=== PATIENT | female | born 1950 | race African-American/Black ===

== ENCOUNTER 2018-09-08 04:21 | Emergency (ER) | payer SELFPAY ==
[~2018-09-08] VITALS: Ht 175.3 cm; Wt 75.7 kg
[2018-09-08 04:30] VITALS: BP 146/103
--- NOTE | 2018-09-08 04:39 | Emergency Room Report ---
History of Present Illness General Chief Complaint: Generalized Weakness Source: Patient (Crow Carrera M.D.) Present Illness HPI Patient presents with weakness and polyuria polydipsia and being out of her insulin. She is from [place] and left her insulin there. She was supposed to meet up with family but this fell through here in [place]. Paramedics were called and her blood sugar was the 400s in the field. She denies chest pain, shortness of breath, fevers, nausea, vomiting, diarrhea, dysuria, skin rashes. Her vision has changed. She has no where to go. Not suicidal, (Crow Carrera M.D.) Allergies: Coded Allergies: PENICILLINS (Verified Allergy, Mild, Rash, 09/08/18) Patient History Past Medical History: see triage record Social History: Reports: smoking, drug use - see tox Social History Narrative from [place] Last Menstrual Period: tomasz Now: No Reviewed Nursing Documentation: PMH: Agreed; PSxH: Agreed (Crow Carrera M.D.) Nursing Documentation-PMH Hx Cardiac Problems: No Hx Hypertension: No Hx Diabetes: Yes (Crow Carrera M.D.) Review of Systems All Other Systems: negative except mentioned in HPI (Crow Carrera M.D.) Physical Exam Vital Signs Date Time Temp Pulse Resp B/P (MAP) Pulse Ox O2 Delivery O2 Flow Rate FiO2 09/08/18 04:08 97.4 97 16 146/103 99 Room Air 97.3 Sp02 EP Interpretation: reviewed, normal General Appearance: well appearing, no apparent distress, GCS 15 Head: normocephalic Eyes: bilateral eye normal inspection, bilateral eye PERRL ENT: moist mucus membranes Neck: supple Respiratory: lungs clear, normal breath sounds Cardiovascular #1: regular rate, rhythm Cardiovascular #2: 2+ radial (R) Gastrointestinal: normal inspection, normal bowel sounds, non tender, no mass, non-distended Musculoskeletal: back normal, normal range of motion Neurologic: alert, oriented x3, motor strength/tone normal, DTRs symmetric, sensory intact, cerebellar normal, speech normal Psychiatric: depressed affect, anxious Skin: normal inspection, warm/dry (Crow Carrera M.D.) Medical Decision Making Diagnostic Impression: Primary Impression: Hyperglycemia Additional Impression: Substance abuse ER Course Patient presents with noncompliance with her insulin. Differential includes DKA , hyperglycemia, other electrolyte abnormality. She will be evaluated with EKG , chest x-ray and labs. She'll be treated with IV hydration and most likely will need insulin. EKG without injury. Chest x-ray normal. Labs with elevated blood sugar. Patient still had high blood sugar after the initial bolus and insulin 10 units was given IV. The patient is complaining about muscle spasms. Magnesium was given IV and a level was checked. When tox discussed with patient, she stated this was not possible to me. ( cocaine) The patient was unable to be discharged initially because she had nowhere to go been no where to get her medications. business services director consult was ordered. The patient was signed out to Dr. De León. Laboratory Tests Test 09/08/18 04:30 09/08/18 06:00 White Blood Count 7.7 K/UL (4.8-10.8) Red Blood Count 5.62 M/UL (4.20-5.40) H Hemoglobin 14.5 G/DL (12.0-16.0) Hematocrit 45.2 % (37.0-47.0) Mean Corpuscular Volume 81 FL (80-99) Mean Corpuscular Hemoglobin 25.8 PG (27.0-31.0) L Mean Corpuscular Hemoglobin Concent 32.1 G/DL (32.0-36.0) Red Cell Distribution Width 11.8 % (11.6-14.8) Platelet Count 258 K/UL (150-450) Mean Platelet Volume 8.5 FL (6.5-10.1) Neutrophils (%) (Auto) 61.6 % (45.0-75.0) Lymphocytes (%) (Auto) 25.6 % (20.0-45.0) Monocytes (%) (Auto) 8.6 % (1.0-10.0) Eosinophils (%) (Auto) 2.8 % (0.0-3.0) Basophils (%) (Auto) 1.4 % (0.0-2.0) Prothrombin Time 11.0 SEC (9.30-11.50) Prothrombin Time INR 1.0 (0.9-1.1) PTT 29 SEC (23-33) Sodium Level 136 MMOL/L (136-145) Potassium Level 4.3 MMOL/L (3.5-5.1) Chloride Level 101 MMOL/L (98-107) Carbon Dioxide Level 29 MMOL/L (21-32) Anion Gap 7 mmol/L (5-15) Blood Urea Nitrogen 23 mg/dL (7-18) H Creatinine 1.1 MG/DL (0.55-1.30) Estimate Glomerular Filtration Rate 49.3 mL/min (>60) Glucose Level 426 MG/DL (74-106) H Calcium Level 9.5 MG/DL (8.5-10.1) Magnesium Level 1.9 MG/DL (1.8-2.4) Total Bilirubin 0.5 MG/DL (0.2-1.0) Aspartate Amino Transferase (AST) 42 U/L (15-37) H Alanine Aminotransferase (ALT) 55 U/L (12-78) Alkaline Phosphatase 145 U/L (46-116) H Total Creatine Kinase 95 U/L (26-308) Troponin I 0.000 ng/mL (0.000-0.056) Pro-B-Type Natriuretic Peptide 204 pg/mL (0-125) H Total Protein 8.2 G/DL (6.4-8.2) Albumin 3.6 G/DL (3.4-5.0) Globulin 4.6 g/dL Albumin/Globulin Ratio 0.8 (1.0-2.7) L Urine Color Pale yellow Urine Appearance Clear Urine pH 7 (4.5-8.0) Urine Specific [place] 1.010 (1.005-1.035) Urine Protein 3+ (NEGATIVE) H Urine Glucose (UA) 4+ (NEGATIVE) H Urine Ketones Negative (NEGATIVE) Urine Blood 1+ (NEGATIVE) H Urine Nitrite Negative (NEGATIVE) Urine Bilirubin Negative (NEGATIVE) Urine Urobilinogen Normal MG/DL (0.0-1.0) Urine Leukocyte Esterase 1+ (NEGATIVE) H Urine RBC 0-2 /HPF (0 - 2) Urine WBC 2-4 /HPF (0 - 2) Urine Squamous Epithelial Cells Occasional /LPF Urine Bacteria Occasional /HPF (NONE) Urine Opiates Screen Negative (NEGATIVE) Urine Barbiturates Screen Negative (NEGATIVE) Phencyclidine (PCP) Screen Negative (NEGATIVE) Urine Amphetamines Screen Negative (NEGATIVE) Urine Benzodiazepines Screen Negative (NEGATIVE) Urine Cocaine Screen Positive (NEGATIVE) H Urine Marijuana (THC) Screen Negative (NEGATIVE) (Crow Carrera M.D.) ER Course Patient well-appearing, glucose down to below 200, awaiting SW for homelessness. Stable for dc to snf with resource packet. (ALVARO DE LEÓN M.D) EKG Diagnostic Results Rate: normal Rhythm: NSR ST Segments: no acute changes (Crow Carrera M.D.) Rhythm Strip Diag. Results EP Interpretation: yes Rhythm: NSR, no PVC's, no ectopy (Crow Carrera M.D.) Rhythm Strip Time: 07:55 EP Interpretation: yes Rate: 67 Rhythm: NSR, no PVC's, no ectopy (ALVARO DE LEÓN Chest X-Ray Diagnostic Results Chest X-Ray Diagnostic Results : Chest X-Ray Ordered: Yes # of Views/Limited/Complete: 1 View Indication: Other EP Interpretation: Yes Interpretation: no consolidation, no effusion, no pneumothorax, no acute cardiopulmonary disease Impression: No acute disease Electronically Signed by: Alvaro De León MD (ALVARO DE LEÓN M.D) Last Vital Signs Date Time Temp Pulse Resp B/P (MAP) Pulse Ox O2 Delivery O2 Flow Rate FiO2 09/08/18 09:56 98.6 90 22 154/86 99 Room Air 98.2 Status: improved (Crow Carrera M.D.) Disposition: HOME, SELF-CARE Crow Carrera M.D. Sep 08, 2018 04:38 ALVARO DE LEÓN M.D Sep 08, 2018 07:59
[2018-09-08 04:47] LABS: BASOPHILS % (AUTO) 1.4 % (0.0-2.0); EOSINOPHILS % (AUTO) 2.8 % (0.0-3.0); HEMATOCRIT 45.2 % (37.0-47.0); HEMOGLOBIN 14.5 G/DL (12.0-16.0); LYMPHOCYTES % (AUTO) 25.6 % (20.0-45.0); MEAN CORPUSCULAR VOLUME 81 FL (80-99); MONOCYTES % (AUTO) 8.6 % (1.0-10.0); NEUTROPHILS % (AUTO) 61.6 % (45.0-75.0); PLATELET COUNT 258 K/UL (150-450); RED BLOOD COUNT 5.62 M/UL (4.20-5.40); RED CELL DISTRIBUTION WIDTH 11.8 % (11.6-14.8); WHITE BLOOD COUNT 7.7 K/UL (4.8-10.8)
[2018-09-08 04:56] LABS: ANION GAP 7 mmol/L (5-15); BLOOD UREA NITROGEN 23 mg/dL (7-18); CALCIUM 9.5 MG/DL (8.5-10.1); CARBON DIOXIDE 29 MMOL/L (21-32); CHLORIDE 101 MMOL/L (98-107); CREATININE 1.1 MG/DL (0.55-1.30); POTASSIUM 4.3 MMOL/L (3.5-5.1); SODIUM 136 MMOL/L (136-145)
[2018-09-08 05:07] LABS: ALANINE AMINOTRANSFERASE 55 U/L (12-78); ALBUMIN 3.6 G/DL (3.4-5.0); ALBUMIN/GLOBULIN RATIO 0.8 (1.0-2.7); ALKALINE PHOSPHATASE 145 U/L (46-116); ASPARTATE AMINO TRANSFERASE 42 U/L (15-37); BILIRUBIN,TOTAL 0.5 MG/DL (0.2-1.0); CREATINE KINASE 95 U/L (26-308)
[2018-09-08] MEDS ORDERED: Insulin Human Regular 100units/ml 3ml IV ONE (05:15)
[2018-09-08 06:26] LABS: APPEARANCE,URINE CLEAR; BILIRUBIN, URINE NEGATIVE (NEGATIVE); COLOR,URINE PALE YELLOW; GLUCOSE, URINE (UA) 4+ (NEGATIVE); KETONES,URINE NEGATIVE (NEGATIVE); LEUKOCYTE ESTERASE ,URINE 1+ (NEGATIVE); NITRITE,URINE NEGATIVE (NEGATIVE); PH,URINE 7 (4.5-8.0); PROTEIN,URINE 3+ (NEGATIVE); UROBILINOGEN,URINE NORMAL MG/DL (0.0-1.0)
[2018-09-08 07:43] VITALS: BP 177/91
[2018-09-08 09:56] VITALS: BP 154/86
--- NOTE | 2018-09-08 10:11 | Diagnostic Imaging Report ---
Indication: Dyspnea Comparison: None A single view chest radiograph was obtained. Findings: Cardiomediastinal appearance is within normal limits for age. The lungs are clear. Pulmonary vascularity is appropriate. The diaphragmatic contour is smooth and costophrenic angles are sharp. No pleural effusions are identified. The bones are unremarkable. Impression: No acute findings
--- NOTE | 2018-09-10 12:07 | Cardiology Report ---
APPROVED REPORT EKG Measurement Heart [id number] Normal sinus rhythm Normal ECG
== END 2018-09-08 12:58 | disposition home or self-care (01) ==
LOC: EDBD 04:21 → EMR 05:15
DX: E11.65 Type 2 diabetes mellitus with hyperglycemia (principal); F14.10 Cocaine abuse, uncomplicated; Z79.4 Long term (current) use of insulin; Z91.14 Patient's other noncompliance with medication regimen
CPT/HCPCS: 36415; 71045; 80053; 80307; 81003; 82550; 83735; 83880; 84484; 85025; 85610; 85730; 93005; 96361; 96365; 96375; 99284; J1815

== ENCOUNTER 2019-09-22 20:51 | Inpatient (IN) | payer MEDICARE ==
[~2019-09-22] VITALS: Ht 175.3 cm; Wt 66.0 kg
[2019-09-22 20:51] VITALS: BP 188/101
--- NOTE | 2019-09-22 20:51 | NUR ---
ED Nurse Note: Patient brought in by ambulance from [facility] with complaints of generalized weakness. Bood sugar "high" in the field. Unable to obtain glucose stick at this time. Will continue to monitor.
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
[2019-09-22 21:04] LABS: HEMATOCRIT 38.8 % (37.0-47.0); LYMPHOCYTES % (AUTO) 22.1 % (20.0-45.0); MEAN CORPUSCULAR VOLUME 79 FL (80-99); MONOCYTES % (AUTO) 6.9 % (1.0-10.0); PLATELET COUNT 231 K/UL (150-450); RED BLOOD COUNT 4.92 M/UL (4.20-5.40); RED CELL DISTRIBUTION WIDTH 10.3 % (11.6-14.8); WHITE BLOOD COUNT 7.1 K/UL (4.8-10.8)
[2019-09-22 21:34] LABS: ALANINE AMINOTRANSFERASE 79 U/L (12-78); ALBUMIN 3.3 G/DL (3.4-5.0); ALBUMIN/GLOBULIN RATIO 0.8 (1.0-2.7); ALKALINE PHOSPHATASE 157 U/L (46-116); ANION GAP 7 mmol/L (5-15); ASPARTATE AMINO TRANSFERASE 48 U/L (15-37); BILIRUBIN,TOTAL 0.4 MG/DL (0.2-1.0); BLOOD UREA NITROGEN 20 mg/dL (7-18); CALCIUM 8.6 MG/DL (8.5-10.1); CARBON DIOXIDE 24 MMOL/L (21-32); CHLORIDE 97 MMOL/L (98-107); CREATININE 1.7 MG/DL (0.55-1.30); POTASSIUM 4.6 MMOL/L (3.5-5.1); SODIUM 128 MMOL/L (136-145)
[2019-09-22 21:50] LABS: APPEARANCE,URINE CLEAR; BILIRUBIN, URINE NEGATIVE (NEGATIVE); COLOR,URINE PALE YELLOW; GLUCOSE, URINE (UA) 4+ (NEGATIVE); KETONES,URINE NEGATIVE (NEGATIVE); LEUKOCYTE ESTERASE ,URINE NEGATIVE (NEGATIVE); NITRITE,URINE NEGATIVE (NEGATIVE); PH,URINE 7 (4.5-8.0); PROTEIN,URINE 2+ (NEGATIVE); UROBILINOGEN,URINE NORMAL MG/DL (0.0-1.0)
--- NOTE | 2019-09-22 21:52 | NUR ---
ED Nurse Note: Patient unable to ambulate to restroom without voiding. Bedside commode placed for convenience.
[2019-09-22] MEDS ORDERED: Insulin Human Regular 100units/ml 3ml IV ONE (22:00)
--- NOTE | 2019-09-22 22:52 | NUR ---
ED Nurse Note: Patient is tolerating fluids well, will continue to monitor.
[2019-09-22] MEDS ORDERED: Morphine Sulfate 2mg/ml Inj(IV/IM USE ONLY) IVP PRN (23:45)
[2019-09-22] MEDS ORDERED: Ketorolac 30mg Inj IV PRN (23:45)
[2019-09-22] MEDS ORDERED: Albuterol/Ipratropium 3ml neb HHN PRN (23:45)
[2019-09-22] MEDS ORDERED: Nitroglycerin Subl 0.4mg tab SL PRN (23:45)
[2019-09-22] MEDS ORDERED: SEROQUEL200 MG ORAL (23:52)
[2019-09-22] MEDS ORDERED: LANTUS SOL100 UNIT/1 SUBQ (23:52)
[2019-09-22] MEDS ORDERED: NOVOLOG100 UNIT/4 SQ (23:52)
--- NOTE | 2019-09-22 23:56 | NUR ---
ED Nurse Note: Report called in to Michelle WASSERMAN.
[2019-09-23] VITALS (7 sets, daily range): BP systolic 143–171; BP diastolic 89–104
--- NOTE | 2019-09-23 | NUR ---
ED Nurse Note: Rectal and nasal swabs completed.
--- NOTE | 2019-09-23 00:12 | NUR ---
ED Nurse Note: Patient transported to floor without incident.
--- NOTE | 2019-09-23 04:29 | NUR ---
NURSES NOTE: Received patient from ER department at approximately 0030. Patient is A/O x4, communicative and able to let needs be known. VS- 97.6, 85, 18, 156/96, 99%. Last BS recorded from ER is 422 from DKA episode down from 775. Will monitor BS to make sure the trend is coming down. 0630 BS will be taken with sliding scale given according to eMAR. IV site in R hand, 22 gauge is patent. NS hung at 100ml/hr. Skin is clear and intact. Bedside commode given on side of the bed for polyuria. Patients BS and BP will continue to be closely monitored. Pt oriented to room, call light within reach, bed at lowest level.
--- NOTE | 2019-09-23 07:15 | Consultation ---
History of Present Illness General Date patient seen: Sep 23, 2019 Time patient seen: 06:00 Chief Complaint: Generalized Weakness Referring physician: dr Baer Reason for Consultation: in hospital management Present Illness HPI 69-year old female PMH of DM, insulin dependent, hypertension ( not on any anti HTN at home), bipolar disorder, substance abuse, presented for evaluation due to generalized weakness. Patient reported depressive episode 2 to 3 days ago and stopped taking her insulin. She felt subsequently weak, short of breath, with palpitations. Patient had episode of urinary incontinence. Patient reported polyuria for the last few days. She denied chest pain. No cough. She denied vomiting , but reported nausea. No fever or chills. No abdominal pain, no diarrhea. Upon evaluation blood pressure was significantly elevated 188/101. Laboratory work-up revealed no leukocytosis , stable hemoglobin and hematocrit. Sodium 128, anion gap 7. BUN 20, creatinine 1.7. Glucose 775. AST 48 ALT 79. Troponin - 0.002. Albumin 3.3. Salicylate , Tylenol and alcohol levels were all negative. Urine toxicology screen was positive for cocaine. Patient admitted to use cocaine recently. Urinalysis revealed no evidence of urinary tract infection. EKG revealed sinus rhythm , no acute ischemic changes. Patient subsequently admitted for further management Allergies: Coded Allergies: PENICILLINS (Verified Allergy, Mild, Rash, 09/08/18) Uncoded Allergies: PENICILLIN (Allergy, Unknown, 09/22/19) Medication History Scheduled Insulin Glargine (Lantus), 0 SUBQ BEDTIME, (Reported) Quetiapine Fumarate* (Seroquel*), 200 MG ORAL DAILY, (Reported) Miscellaneous Medications Insulin Aspart (Novolog), 100 UNIT SQ, (Reported) Patient History History Provided By: Patient Healthcare decision maker self Resuscitation status Full Code Advanced Directive on File Past Medical/Surgical History Past Medical/Surgical History: (1) Bipolar disorder (2) Diabetes (3) HTN (hypertension) Social History Social History: (1) Cocaine use Review of Systems Constitutional: Reports: weakness Eye: Reports: no symptoms ENT: Reports: no symptoms Cardiovascular: Reports: no symptoms Gastrointestinal: Reports: nausea Genitourinary: Reports: incontinence - x1 Musculoskeletal: Reports: no symptoms Skin: Reports: no symptoms Psychiatric: Reports: other - hx bipolar, depression Endocrine: Reports: increased urine, other - DM, requiring insulin Hematologic/Lymphatic: Reports: no symptoms Physical Exam General Appearance: no apparent distress, alert oriented x3 - AA female in NAD Lines, tubes and drains: peripheral HEENT: normocephalic, atraumatic, anicteric, mucous membranes moist, PERRL Neck: non-tender, normal alignment, supple Respiratory/Chest: lungs clear, no respiratory distress, no accessory muscle use Cardiovascular/Chest: normal peripheral pulses, normal rate Abdomen: normal bowel sounds, non tender, soft Extremities: normal range of motion, no calf tenderness, no edema Skin Exam: warm/dry, no diaphoresis Neurologic: no motor/sensory deficits, alert, oriented x 3, responsive Musculoskeletal: normal muscle bulk Last 24 Hour Vital Signs Date Time Temp Pulse Resp B/P (MAP) Pulse Ox O2 Delivery O2 Flow Rate FiO2 09/23/19 02:38 Room Air 09/23/19 00:19 98.6 85 20 158/90 98 Room Air 09/23/19 00:10 98.6 85 20 158/90 98 Room Air 09/22/19 20:51 98.6 91 20 188/101 98 Room Air 09/22/19 20:51 91 20 Room Air 09/22/19 20:34 98.6 91 20 188/101 (130) 98 Room Air Intake and Output 09/22/19 09/23/19 19:00 07:00 Intake Total 0 ml Balance 0 ml Intake Oral 0 ml Laboratory Tests Test 09/22/19 20:48 09/22/19 21:30 White Blood Count 7.1 K/UL (4.8-10.8) Red Blood Count 4.92 M/UL (4.20-5.40) Hemoglobin 13.0 G/DL (12.0-16.0) Hematocrit 38.8 % (37.0-47.0) Mean Corpuscular Volume 79 FL (80-99) L Mean Corpuscular Hemoglobin 26.4 PG (27.0-31.0) L Mean Corpuscular Hemoglobin Concent 33.5 G/DL (32.0-36.0) Red Cell Distribution Width 10.3 % (11.6-14.8) L Platelet Count 231 K/UL (150-450) Mean Platelet Volume 7.5 FL (6.5-10.1) Neutrophils (%) (Auto) 67.0 % (45.0-75.0) Lymphocytes (%) (Auto) 22.1 % (20.0-45.0) Monocytes (%) (Auto) 6.9 % (1.0-10.0) Eosinophils (%) (Auto) 2.0 % (0.0-3.0) Basophils (%) (Auto) 2.0 % (0.0-2.0) Sodium Level 128 MMOL/L (136-145) L Potassium Level 4.6 MMOL/L (3.5-5.1) Chloride Level 97 MMOL/L (98-107) L Carbon Dioxide Level 24 MMOL/L (21-32) Anion Gap 7 mmol/L (5-15) Blood Urea Nitrogen 20 mg/dL (7-18) H Creatinine 1.7 MG/DL (0.55-1.30) H Estimat Glomerular Filtration Rate 36.0 mL/min (>60) Glucose Level 775 MG/DL (74-106) *H Calcium Level 8.6 MG/DL (8.5-10.1) Magnesium Level 2.0 MG/DL (1.8-2.4) Total Bilirubin 0.4 MG/DL (0.2-1.0) Aspartate Amino Transf (AST/SGOT) 48 U/L (15-37) H Alanine Aminotransferase (ALT/SGPT) 79 U/L (12-78) H Alkaline Phosphatase 157 U/L (46-116) H Troponin I 0.002 ng/mL (0.000-0.056) Total Protein 7.6 G/DL (6.4-8.2) Albumin 3.3 G/DL (3.4-5.0) L Globulin 4.3 g/dL Albumin/Globulin Ratio 0.8 (1.0-2.7) L Salicylates Level 1.7 ug/mL (2.8-20) L Acetaminophen Level < 2 MCG/ML (10-30) L Serum Alcohol < 3 mg/dL Acetone Level Negative (NEGATIVE) Urine Color Pale yellow Urine Appearance Clear Urine pH 7 (4.5-8.0) Urine Specific [place] 1.005 (1.005-1.035) Urine Protein 2+ (NEGATIVE) H Urine Glucose (UA) 4+ (NEGATIVE) H Urine Ketones Negative (NEGATIVE) Urine Blood Negative (NEGATIVE) Urine Nitrite Negative (NEGATIVE) Urine Bilirubin Negative (NEGATIVE) Urine Urobilinogen Normal MG/DL (0.0-1.0) Urine Leukocyte Esterase Negative (NEGATIVE) Urine RBC 0-2 /HPF (0 - 2) Urine WBC 0-2 /HPF (0 - 2) Urine Squamous Epithelial Cells Few /LPF (NONE/OCC) Urine Bacteria Few /HPF (NONE) Urine Opiates Screen Negative (NEGATIVE) Urine Barbiturates Screen Negative (NEGATIVE) Phencyclidine (PCP) Screen Negative (NEGATIVE) Urine Amphetamines Screen Negative (NEGATIVE) Urine Benzodiazepines Screen Negative (NEGATIVE) Urine Cocaine Screen Positive (NEGATIVE) H Urine Marijuana (THC) Screen Negative (NEGATIVE) Microbiology Date/Time Source Procedure Growth Status 09/23/19 00:00 Rectum Received Height (Feet): 5 Height (Inches): 9.00 Weight (Pounds): 170 Medications Current Medications Medications (Trade) Dose Ordered Sig/Manny Route PRN Reason Start Time Stop Time Status Last Admin Dose Admin Acetaminophen (Tylenol) 650 mg Q4H PRN ORAL fever 09/22/19 23:45 10/22/19 23:44 Albuterol/ Ipratropium (Albuterol/ Ipratropium) 3 ml Q4H PRN HHN Shortness of Breath 09/22/19 23:45 09/27/19 23:44 Clonidine HCl (Catapres Tab) 0.1 mg Q4H PRN ORAL sbp more than 160 09/22/19 23:45 10/22/19 23:44 Dextrose (Dextrose 50%) 25 ml Q30M PRN IV Hypoglycemia 09/22/19 23:45 10/22/19 23:44 Dextrose (Dextrose 50%) 50 ml Q30M PRN IV Hypoglycemia 09/22/19 23:45 10/22/19 23:44 Heparin Sodium (Porcine) (Heparin 5000 units/ml) 5,000 units EVERY 12 HOURS SUBQ 09/23/19 09:00 10/23/19 08:59 Insulin Aspart (NovoLOG) BEFORE MEALS AND HS SUBQ 09/23/19 06:30 10/23/19 06:29 Ketorolac Tromethamine (Toradol 30mg) 30 mg Q6H PRN IV moderate pain 4-6 09/22/19 23:45 09/27/19 23:44 Morphine Sulfate (Morphine Sulfate) 2 mg Q4H PRN IVP severe pain 7-10 09/22/19 23:45 09/29/19 23:44 Nitroglycerin (Ntg) 0.4 mg Q5M X 3 DOSES PRN SL Prn Chest Pain 09/22/19 23:45 10/22/19 23:44 Ondansetron HCl (Zofran) 4 mg Q6H PRN IVP Nausea & Vomiting 09/22/19 23:45 10/22/19 23:44 Polyethylene Glycol (Miralax) 17 gm HSPRN PRN ORAL Constipation 09/22/19 23:45 10/22/19 23:44 Sodium Chloride 1,000 ml @ 100 mls/hr Q10H IVLG 09/22/19 23:31 10/22/19 23:30 09/22/19 01:00 Temazepam (Restoril) 15 mg HSPRN PRN ORAL Insomnia 09/22/19 23:45 09/29/19 23:44 Assessment/Plan Assessment/Plan: ASSESSMENT HTN urgency Hyperglycemia IDDM Hyponatremia -resolved JOLENE-resolved Cocaine use Mild transaminitis Noncompliance PLAN OF CARE MS floor hydration with NS monitor Na, hypo Na likely due to hyperglycemia-resolved monitor renal parameters, lytes, avoid nephrotoxics JOLENE -resolved BP management , will add Norvasc as a routine management with holding parameters , keep Clonidine on board prn BS management , check [id number], BS down to 400, add Levemir , contineu with SSI TSH WNL encourage compliance with insulin regimen at home trend LFT recreation counselor on abstinence from illicit street drugs DVT prophylaxis supportive care case discussed and evaluated by supervising physician Macarena Riddle NP Sep 23, 2019 07:15
[2019-09-23] MEDS: NovoLOG Insulin Flexpen SUBQ SCH ×5 (07:32→21:26)
[2019-09-23 07:54] LABS: EOSINOPHILS % (AUTO) 2.5 % (0.0-3.0); HEMATOCRIT 34.9 % (37.0-47.0); HEMOGLOBIN 11.8 G/DL (12.0-16.0); LYMPHOCYTES % (AUTO) 35.3 % (20.0-45.0); MEAN CORPUSCULAR VOLUME 78 FL (80-99); MONOCYTES % (AUTO) 6.9 % (1.0-10.0); NEUTROPHILS % (AUTO) 54.3 % (45.0-75.0); PLATELET COUNT 233 K/UL (150-450); RED BLOOD COUNT 4.46 M/UL (4.20-5.40); RED CELL DISTRIBUTION WIDTH 11.5 % (11.6-14.8)
--- NOTE | 2019-09-23 08:00 | NUR ---
NURSE NOTES: received report from Екатерина WASSERMAN, pt a/a/o x4 laying in bed with no signs of distress or other issues at this time. IV on the right hand gauge#22 NS @100ml/hr. call light within reach, bed in lowest position. side rales up x 2. I will f/u as needed.
--- NOTE | 2019-09-23 08:30 | NUR ---
HAND OFF: Report given to LISY Fagan. Pt in stable condition.
[2019-09-23 09:03] LABS: ALANINE AMINOTRANSFERASE 86 U/L (12-78); ALBUMIN 2.9 G/DL (3.4-5.0); ALBUMIN/GLOBULIN RATIO 0.7 (1.0-2.7); ALKALINE PHOSPHATASE 141 U/L (46-116); ANION GAP 11 mmol/L (5-15); ASPARTATE AMINO TRANSFERASE 81 U/L (15-37); BILIRUBIN,TOTAL 0.4 MG/DL (0.2-1.0); BLOOD UREA NITROGEN 17 mg/dL (7-18); CALCIUM 8.3 MG/DL (8.5-10.1); CARBON DIOXIDE 21 MMOL/L (21-32); CHLORIDE 105 MMOL/L (98-107); CHOLESTEROL 104 MG/DL (< 200); CREATININE 1.1 MG/DL (0.55-1.30); HDL CHOLESTEROL 48 MG/DL (40-60); POTASSIUM 4.1 MMOL/L (3.5-5.1); SODIUM 137 MMOL/L (136-145); TRIGLYCERIDES 107 MG/DL (30-150)
[2019-09-23] MEDS: Heparin 5000 units/ml inj SUBQ SCH ×2 (09:26→21:25)
[2019-09-23] MEDS ORDERED: Levemir Flexpen SUBQ SCH (11:30)
--- NOTE | 2019-09-23 11:35 | NUR ---
HAND-OFF: Report given to Jersey WASSERMAN, pt in stable condition.
--- NOTE | 2019-09-23 11:36 | NUR ---
NURSE NOTES: Received pt in bed, AAO x 4. Room air. No c/o of pain/distress. IV on R hand 22g intact and patent, running NS @ 100 ml/hr. Bedside commode at the bedside. Side rails x 2. Bed in the lowest and locked. Call light within reach. Will continue to monitor
--- NOTE | 2019-09-23 11:40 | NUR ---
NURSE NOTES: Blood sugar @1130 was 407. 14 units of novolog and 15 units of levemir given. MAR Riddle made aware
--- NOTE | 2019-09-23 17:13 | History & Physical ---
History and Physical History & Physicial Dictated for Int Med-Dr Baer no. [id number] Jose Hernandez MD Sep 23, 2019 17:13
--- NOTE | 2019-09-23 18:00 | History and Physical Report ---
DATE OF ADMISSION: 09/22/2019 CHIEF COMPLAINT: The patient is a 69-year-old female, who presents with chief complaint of generalized weakness, shortness of breath, and urine incontinence. HISTORY OF PRESENT ILLNESS: The patient states she became extremely depressed about three days prior to admission. The patient is not taking her insulin. The patient then began to experience generalized weakness. The patient also had shortness of breath. The patient developed urinary incontinence. The patient presented to [facility]. The patient was found to have a venous glucose value of 775. The patient was admitted with hyperglycemia and uncontrolled diabetes. REVIEW OF SYSTEMS: CONSTITUTIONAL: The patient denies weight loss or weight gain. The patient complains of generalized weakness as above. HEENT: The patient denies ear or throat pain. The patient denies headache. CARDIOVASCULAR: The patient complains of palpitations. The patient denies chest pain. ABDOMEN: The patient denies nausea, vomiting, diarrhea, or constipation. GENITOURINARY: The patient complains of urinary incontinence. The patient denies dysuria. NEUROMUSCULAR: The patient complains of generalized weakness. The patient denies seizures. PAST MEDICAL HISTORY: Significant for: 1. Type 2 diabetes. 2. Hypertension. 3. Depression. PAST SURGICAL HISTORY: The patient denies. CURRENT MEDICATIONS: 1. NovoLog sliding scale. 2. Lantus insulin of an unknown dose nightly. 3. Seroquel 200 mg p.o. daily. ALLERGIES: Penicillin. SOCIAL HISTORY: The patient is a . The patient lives alone. The patient denies tobacco use. The patient does smoke marijuana and cocaine occasionally. The patient admits to occasional alcohol use. PHYSICAL EXAMINATION: VITAL SIGNS: Temperature 98.1 degrees, respirations 18, pulse 90, and blood pressure 156/89. GENERAL: The patient is a well-developed and well-nourished female, no apparent distress. HEENT: Eyes, pupils equal and responsive to light and accommodation. Extraocular movements are intact. NECK: Supple without lymphadenopathy. CHEST: Lungs are clear to auscultation bilaterally without wheezes or rales. CARDIOVASCULAR: Regular rate. S1 and S2 are normal without murmurs, rubs, or gallops. ABDOMEN: Soft, nontender, and nondistended. Positive bowel sounds. No evidence of hepatosplenomegaly. Currently, no rebound or guarding noted. EXTREMITIES: Negative for clubbing, cyanosis, or edema. RECTAL: Not performed. GENITALIA: Not performed. NEUROLOGIC: Cranial nerves II through XII are grossly intact without focal deficits. Motor strength is 5/5 bilaterally intact. Deep tendon reflexes are 2+ plantar. LABORATORY STUDIES: WBC 7.1, hemoglobin 13.0, hematocrit 38.8, and platelets 231,000. Sodium 128, potassium 4.6, chloride 97, CO2 24, BUN 20, creatinine 1.7, and glucose 775. AST elevated at 48, ALT elevated at 79, and alkaline phosphatase elevated at 157. Troponin 0.002. Urinalysis showed 2+ protein and 4+ glucose. Urine toxicology was positive for cocaine. ASSESSMENT: This is a 69-year-old female: 1. Generalized weakness. 2. Shortness of breath. 3. Hyperglycemia. 4. Uncontrolled diabetes type 2. 5. Hypertensive emergency. 6. Hyponatremia. TREATMENT: 1. Generalized weakness/shortness of breath/hyperglycemia/uncontrolled diabetes type 2. The patient has been placed on Levemir 15 units subcutaneously twice daily. A NovoLog sliding scale has been instituted. Accu-Cheks will be performed before meals and nightly. 2. Hypertensive emergency. The patient is currently receiving clonidine 0.1 mg q.4 h. p.r.n. 3. Hyponatremia. The patient is currently receiving intravenous fluids with sodium chloride. Jose Hernandez M.D. DR: Toney JOB#: [id number] CC:
--- NOTE | 2019-09-23 19:00 | Consultation ---
DATE OF CONSULTATION: 09/23/2019 ENDOCRINOLOGY CONSULTATION CONSULTING PHYSICIAN: Haresh Matos M.D. REFERRING PHYSICIAN: Antolin Baer M.D. REASON FOR CONSULTATION: Hyperglycemia, diabetes out of control. HISTORY OF PRESENT ILLNESS: The patient is a 69-year-old female with history of insulin-dependent diabetes who has not been taking any diabetic medication and insulin due to depression and being out of testing meter. The patient presented to the hospital with glucose of 700. She was not in diabetic ketoacidosis. Creatinine was elevated. The patient was given a fluid and insulin and admitted to the floor for observation and treatment. I was called to manage diabetes. PAST MEDICAL HISTORY: 1. Bipolar disorder. 2. Diabetes. 3. Hypertension. SOCIAL HISTORY: The patient has history of cocaine use. REVIEW OF SYSTEMS: A 12-point review of systems performed. The pertinent positive and negative in the history of present illness. MEDICATIONS: Reviewed and reconciled. ALLERGIES TO MEDICATION: Penicillin. LABORATORY VALUES: WBC 7, hemoglobin 11, hematocrit 34.9, platelets of 233. Sodium 137, potassium 4.1, chloride 105, bicarb 21, BUN 23, creatinine 1.1, glucose of 406. On presentation, glucose was 775. TSH is 2.5. Tox screen is positive for cocaine. PHYSICAL EXAMINATION: GENERAL: The patient is awake and alert. VITAL SIGNS: Blood pressure is 161/98, pulse 88, respiratory rate of 20, temperature of 97.9. HEENT: Pupils are reactive to light. Sclerae anicteric. NECK: No JVD. No thyromegaly. No bruit. LUNGS: Clear. HEART: Regular rate and rhythm. ABDOMEN: Positive bowel sounds. EXTREMITIES: No clubbing, cyanosis, edema. DIAGNOSES: 1. Diabetes, out of control with severe hyperglycemia without diabetic ketoacidosis. 2. Noncompliance with insulin. 3. Hypertension 4. Cocaine abuse. PLAN: 1. Start the patient on Levemir 15 units b.i.d. 2. Start NovoLog 8 units before each meal. 3. NovoLog sliding scale before meals and at bedtime. 4. Hypoglycemia protocol 5. Further adjustment according to blood glucose values. Thank you Dr. Baer, for the courtesy of this consultation. Haresh Matos M.D. DR: Sumi JOB#: [id number] CC:
--- NOTE | 2019-09-23 19:24 | NUR ---
NURSE NOTES: Received report from LISY Putnam. Rounds done. No distress noted, sitting up in bed. Bed in low position, side rails up x2, call light within reach. Patient is hoping to leave tomorrow. Will continue to monitor.
--- NOTE | 2019-09-23 19:25 | NUR ---
HAND-OFF: Report given to LISY Munguia.
[2019-09-23] MEDS: Levemir Flexpen SUBQ SCH (21:28)
[2019-09-24] VITALS (7 sets, daily range): BP systolic 126–175; BP diastolic 79–101
--- NOTE | 2019-09-24 06:15 | General Progress Note ---
Assessment/Plan Problem List: (1) JOLENE (acute kidney injury) ICD Codes: N17.9 - Acute kidney failure, unspecified SNOMED: 86380539, 4970469 (2) Diabetes ICD Codes: E11.9 - Type 2 diabetes mellitus without complications SNOMED: 17412960 (3) HTN (hypertension) ICD Codes: I10 - Essential (primary) hypertension SNOMED: 28268081 (4) Cocaine use ICD Codes: F14.90 - Cocaine use, unspecified, uncomplicated SNOMED: 596923275 (5) Hyperglycemia ICD Codes: R73.9 - Hyperglycemia, unspecified SNOMED: 95148976 Assessment/Plan: continue Levemir 15 units bid continue Novolog 8 units ac tid continue NISS ac / hs Subjective Allergies: Coded Allergies: PENICILLINS (Verified Allergy, Mild, Rash, 09/08/18) Uncoded Allergies: PENICILLIN (Allergy, Unknown, 09/22/19) All Systems: reviewed and negative except above Subjective events noted Item Value Date Time Bedside Blood Glucose 116 mg/dl 09/23/19 2128 Bedside Blood Glucose 221 mg/dl H 09/23/19 1703 Bedside Blood Glucose 407 mg/dl H 09/23/19 1137 Bedside Blood Glucose 396 mg/dl H 09/23/19 0732 Objective Last 24 Hour Vital Signs Date Time Temp Pulse Resp B/P (MAP) Pulse Ox O2 Delivery O2 Flow Rate FiO2 09/24/19 04:01 97.9 67 16 141/87 (105) 99 09/24/19 00:10 91 151/92 (111) 09/23/19 23:28 171/104 09/23/19 23:25 97.3 92 18 171/104 (126) 98 09/23/19 21:00 Room Air 09/23/19 20:38 83 18 97 Room Air 21 09/23/19 20:00 98.1 93 18 145/90 (108) 99 09/23/19 16:00 98.5 82 20 159/101 (120) 98 09/23/19 12:00 97.9 88 20 161/98 (119) 96 09/23/19 11:27 88 143/94 09/23/19 09:00 Room Air 09/23/19 08:00 98.6 88 18 143/94 (110) 95 Intake and Output 09/23/19 09/24/19 18:59 06:59 Intake Total 600 ml Balance 600 ml IV Total 600 ml # Voids 3 Height (Feet): 5 Height (Inches): 9.00 Weight (Pounds): 170 General Appearance: no apparent distress Neck: normal alignment Cardiovascular: normal rate Respiratory/Chest: lungs clear Abdomen: normal bowel sounds Objective Current Medications Medications (Trade) Dose Ordered Sig/Manny Route PRN Reason Start Time Stop Time Status Last Admin Dose Admin Acetaminophen (Tylenol) 650 mg Q4H PRN ORAL fever 09/22/19 23:45 10/22/19 23:44 Albuterol/ Ipratropium (Albuterol/ Ipratropium) 3 ml Q4H PRN HHN Shortness of Breath 09/22/19 23:45 09/27/19 23:44 Amlodipine Besylate (Norvasc) 2.5 mg DAILY ORAL 09/23/19 10:15 10/23/19 10:14 09/23/19 11:27 Clonidine HCl (Catapres Tab) 0.1 mg Q4H PRN ORAL sbp more than 160 09/22/19 23:45 10/22/19 23:44 09/23/19 23:28 Dextrose (Dextrose 50%) 25 ml Q30M PRN IV Hypoglycemia 09/23/19 13:30 10/23/19 13:29 Dextrose (Dextrose 50%) 50 ml Q30M PRN IV Hypoglycemia 09/23/19 13:30 10/23/19 13:29 Heparin Sodium (Porcine) (Heparin 5000 units/ml) 5,000 units EVERY 12 HOURS SUBQ 09/23/19 09:00 10/23/19 08:59 09/23/19 21:25 Insulin Aspart (NovoLOG) BEFORE MEALS AND HS SUBQ 09/23/19 06:30 10/23/19 06:29 09/23/19 21:26 Insulin Aspart (NovoLOG) 8 units NOVOTIAC SUBQ 09/23/19 16:50 10/23/19 16:49 09/23/19 17:02 Insulin Detemir (Levemir) 15 units Q12HR SUBQ 09/23/19 21:00 10/23/19 20:59 09/23/19 21:28 Ketorolac Tromethamine (Toradol 30mg) 30 mg Q6H PRN IV moderate pain 4-6 09/22/19 23:45 09/27/19 23:44 09/23/19 20:41 Morphine Sulfate (Morphine Sulfate) 2 mg Q4H PRN IVP severe pain 7-10 09/22/19 23:45 09/29/19 23:44 Nitroglycerin (Ntg) 0.4 mg Q5M X 3 DOSES PRN SL Prn Chest Pain 09/22/19 23:45 10/22/19 23:44 Ondansetron HCl (Zofran) 4 mg Q6H PRN IVP Nausea & Vomiting 09/22/19 23:45 10/22/19 23:44 Polyethylene Glycol (Miralax) 17 gm HSPRN PRN ORAL Constipation 09/22/19 23:45 10/22/19 23:44 Sodium Chloride 1,000 ml @ 100 mls/hr Q10H IVLG 09/22/19 23:31 10/22/19 23:30 09/24/19 06:10 Temazepam (Restoril) 15 mg HSPRN PRN ORAL Insomnia 09/22/19 23:45 09/29/19 23:44 Haresh Matos MD Sep 24, 2019 06:15
[2019-09-24] MEDS: NovoLOG Insulin Flexpen SUBQ SCH ×9 (06:49→21:40)
--- NOTE | 2019-09-24 07:20 | NUR ---
HAND-OFF: Report given to LISY Fagan.
--- NOTE | 2019-09-24 08:00 | NUR ---
NURSE NOTES: Received report from Nilda WASSERMAN, pt a/a/o x4 laying in bed with no signs of distress or other issues at this time. VS: BP:173/100, HR:73, RN will medicate as indicated. pt stated not feeling any WHITE, blurred vision or tachycardic. RN will f/u. IV on the right hand gauge#22 running NS@100ml/hr. call light within reach. bed in lowest position. side rales up x2. I will f/u as needed.
[2019-09-24] MEDS: Heparin 5000 units/ml inj SUBQ SCH ×2 (08:15→08:22)
[2019-09-24] MEDS: Levemir Flexpen SUBQ SCH ×2 (08:17→21:41)
[2019-09-24 08:25] LABS: BASOPHILS % (AUTO) 0.9 % (0.0-2.0); EOSINOPHILS % (AUTO) 2.9 % (0.0-3.0); HEMATOCRIT 37.9 % (37.0-47.0); HEMOGLOBIN 12.4 G/DL (12.0-16.0); LYMPHOCYTES % (AUTO) 40.5 % (20.0-45.0); MEAN CORPUSCULAR VOLUME 79 FL (80-99); MONOCYTES % (AUTO) 5.4 % (1.0-10.0); NEUTROPHILS % (AUTO) 50.3 % (45.0-75.0); PLATELET COUNT 250 K/UL (150-450); RED CELL DISTRIBUTION WIDTH 11.5 % (11.6-14.8)
--- NOTE | 2019-09-24 08:30 | NUR ---
NURSE NOTES: during medication time, once heparin syringe was prepared, pt REFUSED to take medication, she stated that she doesn't need and that she will walk later today. RN educated pt about risk and benefits of medication. I will f/u as needed.
[2019-09-24 08:37] LABS: ANION GAP 9 mmol/L (5-15); BLOOD UREA NITROGEN 16 mg/dL (7-18); CALCIUM 8.6 MG/DL (8.5-10.1); CARBON DIOXIDE 26 MMOL/L (21-32); CHLORIDE 100 MMOL/L (98-107); CREATININE 1.3 MG/DL (0.55-1.30); SODIUM 135 MMOL/L (136-145)
--- NOTE | 2019-09-24 09:00 | NUR ---
NURSE NOTES: Reassessed BP after given her schedule Norvasc: 164/94. RN wanted to give clonidine Po however pt REFUSED to take medication. she stated that she wants to wait a little bit more. RN explained risk and benefits of the medication. I will f/u as needed.
--- NOTE | 2019-09-24 11:43 | Pulmonology Progress Note ---
Assessment/Plan Problems: (1) HTN (hypertension) (2) JOLENE (acute kidney injury) (3) Diabetes (4) Cocaine use (5) Homelessness Assessment/Plan BP better BS better dc iv fluids renal function better social service for homelessness. Subjective ROS Limited/Unobtainable: No Interval Events: doing better Allergies: Coded Allergies: PENICILLINS (Verified Allergy, Mild, Rash, 09/08/18) Uncoded Allergies: PENICILLIN (Allergy, Unknown, 09/22/19) Objective Last 24 Hour Vital Signs Date Time Temp Pulse Resp B/P (MAP) Pulse Ox O2 Delivery O2 Flow Rate FiO2 09/24/19 09:00 Room Air 09/24/19 09:00 97.3 73 18 164/94 (117) 100 09/24/19 08:14 73 173/100 09/24/19 08:00 97.3 73 18 175/100 (125) 100 09/24/19 07:25 73 18 98 Room Air 21 09/24/19 04:01 97.9 67 16 141/87 (105) 99 09/24/19 00:10 91 151/92 (111) 09/23/19 23:28 171/104 09/23/19 23:25 97.3 92 18 171/104 (126) 98 09/23/19 21:00 Room Air 09/23/19 20:38 83 18 97 Room Air 21 09/23/19 20:00 98.1 93 18 145/90 (108) 99 09/23/19 16:00 98.5 82 20 159/101 (120) 98 09/23/19 12:00 97.9 88 20 161/98 (119) 96 Intake and Output 09/23/19 09/24/19 19:00 07:00 Intake Total 100 ml 1450 ml Balance 100 ml 1450 ml Intake Oral 450 ml IV Total 100 ml 1000 ml # Voids 3 3 General Appearance: WD/WN HEENT: normocephalic, atraumatic Respiratory/Chest: chest wall non-tender, lungs clear Breasts: no masses Cardiovascular: normal rate Abdomen: normal bowel sounds, soft, non tender Extremities: no cyanosis Skin: no rash, no lesions Microbiology Date/Time Source Procedure Growth Status 09/23/19 00:00 Rectum Received Laboratory Tests 09/24/19 08:12: White Blood Count 7.0, Red Blood Count 4.80, Hemoglobin 12.4, Hematocrit 37.9, Mean Corpuscular Volume 79L, Mean Corpuscular Hemoglobin 25.8L, Mean Corpuscular Hemoglobin Concent 32.6, Red Cell Distribution Width 11.5L, Platelet Count 250, Mean Platelet Volume 7.3, Neutrophils (%) (Auto) 50.3, Lymphocytes (%) (Auto) 40.5, Monocytes (%) (Auto) 5.4, Eosinophils (%) (Auto) 2.9, Basophils (%) (Auto) 0.9, Sodium Level 135L, Potassium Level 4.0, Chloride Level 100, Carbon Dioxide Level 26, Anion Gap 9, Blood Urea Nitrogen 16, Creatinine 1.3, Estimat Glomerular Filtration Rate 49.1, Glucose Level 294#H, Calcium Level 8.6 Current Medications Medications (Trade) Dose Ordered Sig/Manny Route PRN Reason Start Time Stop Time Status Last Admin Dose Admin Acetaminophen (Tylenol) 650 mg Q4H PRN ORAL fever 09/22/19 23:45 10/22/19 23:44 Amlodipine Besylate (Norvasc) 5 mg DAILY ORAL 09/25/19 09:00 10/23/19 10:14 UNV Clonidine HCl (Catapres Tab) 0.1 mg Q4H PRN ORAL sbp more than 160 09/22/19 23:45 10/22/19 23:44 09/23/19 23:28 Dextrose (Dextrose 50%) 25 ml Q30M PRN IV Hypoglycemia 09/23/19 13:30 10/23/19 13:29 Dextrose (Dextrose 50%) 50 ml Q30M PRN IV Hypoglycemia 09/23/19 13:30 10/23/19 13:29 Hydralazine HCl (Apresoline) 25 mg Q6HR ORAL 09/24/19 12:00 10/24/19 11:59 UNV Insulin Aspart (NovoLOG) BEFORE MEALS AND HS SUBQ 09/23/19 06:30 10/23/19 06:29 09/24/19 06:50 Insulin Aspart (NovoLOG) 8 units NOVOTIAC SUBQ 09/23/19 16:50 10/23/19 16:49 09/24/19 06:49 Insulin Detemir (Levemir) 15 units Q12HR SUBQ 09/23/19 21:00 10/23/19 20:59 09/24/19 08:17 Ketorolac Tromethamine (Toradol 30mg) 30 mg Q6H PRN IV moderate pain 4-6 09/22/19 23:45 09/27/19 23:44 09/23/19 20:41 Polyethylene Glycol (Miralax) 17 gm HSPRN PRN ORAL Constipation 09/22/19 23:45 10/22/19 23:44 Temazepam (Restoril) 15 mg HSPRN PRN ORAL Insomnia 09/22/19 23:45 09/29/19 23:44 Katya Cheng MD Sep 24, 2019 11:43
--- NOTE | 2019-09-24 13:00 | NUR ---
NURSE NOTES: pt REFUSED insulin coverage, pt stated that is "To much insulin" and that i already gave her in the morning. RN explained risk and benefits and as well as the differenced between NovoLog and Levemir insulin. Dr. Cheng is aware as well.
[2019-09-24] MEDS: HydrALAZINE 25mg tab ORAL SCH ×2 (13:03→17:15)
--- NOTE | 2019-09-24 13:54 | Internal Med Progress Note ---
Subjective Date of Service: Sep 24, 2019 Physician Name Jose Hernandez Attending Physician Antolin Baer MD Current Medications Medications (Trade) Dose Ordered Sig/Manny Route PRN Reason Start Time Stop Time Status Last Admin Dose Admin Acetaminophen (Tylenol) 650 mg Q4H PRN ORAL fever 09/22/19 23:45 10/22/19 23:44 Amlodipine Besylate (Norvasc) 5 mg DAILY ORAL 09/25/19 09:00 10/25/19 08:59 Clonidine HCl (Catapres Tab) 0.1 mg Q4H PRN ORAL sbp more than 160 09/22/19 23:45 10/22/19 23:44 09/23/19 23:28 Dextrose (Dextrose 50%) 25 ml Q30M PRN IV Hypoglycemia 09/23/19 13:30 10/23/19 13:29 Dextrose (Dextrose 50%) 50 ml Q30M PRN IV Hypoglycemia 09/23/19 13:30 10/23/19 13:29 Hydralazine HCl (Apresoline) 25 mg Q6HR ORAL 09/24/19 12:00 10/24/19 11:59 09/24/19 13:03 Insulin Aspart (NovoLOG) BEFORE MEALS AND HS SUBQ 09/23/19 06:30 10/23/19 06:29 09/24/19 06:50 Insulin Aspart (NovoLOG) 8 units NOVOTIAC SUBQ 09/23/19 16:50 10/23/19 16:49 09/24/19 06:49 Insulin Detemir (Levemir) 15 units Q12HR SUBQ 09/23/19 21:00 10/23/19 20:59 09/24/19 08:17 Ketorolac Tromethamine (Toradol 30mg) 30 mg Q6H PRN IV moderate pain 4-6 09/22/19 23:45 09/27/19 23:44 09/23/19 20:41 Polyethylene Glycol (Miralax) 17 gm HSPRN PRN ORAL Constipation 09/22/19 23:45 10/22/19 23:44 Temazepam (Restoril) 15 mg HSPRN PRN ORAL Insomnia 09/22/19 23:45 09/29/19 23:44 Allergies: Coded Allergies: PENICILLINS (Verified Allergy, Mild, Rash, 09/08/18) Uncoded Allergies: PENICILLIN (Allergy, Unknown, 09/22/19) ROS Limited/Unobtainable: No Constitutional: Reports: weakness HEENT: Reports: no symptoms Cardiovascular: Reports: no symptoms Respiratory: Reports: shortness of breath Gastrointestinal/Abdominal: Reports: no symptoms Genitourinary: Reports: no symptoms Neurologic/Psychiatric: Reports: no symptoms Subjective 69 YO F admitted with gen weakness. Now hyperglycemia and hypertensive emergency. Cover for Int Saul-Dr Baer Objective Last Vital Signs Date Time Temp Pulse Resp B/P (MAP) Pulse Ox O2 Delivery O2 Flow Rate FiO2 09/24/19 13:03 170/101 09/24/19 12:00 97.5 78 18 97 09/24/19 09:00 Room Air 09/24/19 07:25 21 Laboratory Tests Test 09/24/19 08:12 White Blood Count 7.0 K/UL (4.8-10.8) Red Blood Count 4.80 M/UL (4.20-5.40) Hemoglobin 12.4 G/DL (12.0-16.0) Hematocrit 37.9 % (37.0-47.0) Mean Corpuscular Volume 79 FL (80-99) L Mean Corpuscular Hemoglobin 25.8 PG (27.0-31.0) L Mean Corpuscular Hemoglobin Concent 32.6 G/DL (32.0-36.0) Red Cell Distribution Width 11.5 % (11.6-14.8) L Platelet Count 250 K/UL (150-450) Mean Platelet Volume 7.3 FL (6.5-10.1) Neutrophils (%) (Auto) 50.3 % (45.0-75.0) Lymphocytes (%) (Auto) 40.5 % (20.0-45.0) Monocytes (%) (Auto) 5.4 % (1.0-10.0) Eosinophils (%) (Auto) 2.9 % (0.0-3.0) Basophils (%) (Auto) 0.9 % (0.0-2.0) Sodium Level 135 MMOL/L (136-145) L Potassium Level 4.0 MMOL/L (3.5-5.1) Chloride Level 100 MMOL/L (98-107) Carbon Dioxide Level 26 MMOL/L (21-32) Anion Gap 9 mmol/L (5-15) Blood Urea Nitrogen 16 mg/dL (7-18) Creatinine 1.3 MG/DL (0.55-1.30) Estimat Glomerular Filtration Rate 49.1 mL/min (>60) Glucose Level 294 MG/DL (74-106) #H Calcium Level 8.6 MG/DL (8.5-10.1) Microbiology Date/Time Source Procedure Growth Status 09/23/19 00:00 Rectum Received Intake and Output 09/23/19 09/24/19 19:00 07:00 Intake Total 100 ml 1450 ml Balance 100 ml 1450 ml Intake Oral 450 ml IV Total 100 ml 1000 ml # Voids 3 3 Objective PHYSICAL EXAMINATION: GENERAL: The patient is a well-developed and well-nourished female, no apparent distress. HEENT: Eyes, pupils equal and responsive to light and accommodation. Extraocular movements are intact. NECK: Supple without lymphadenopathy. CHEST: Lungs are clear to auscultation bilaterally without wheezes or rales. CARDIOVASCULAR: Regular rate. S1 and S2 are normal without murmurs, rubs, or gallops. ABDOMEN: Soft, nontender, and nondistended. Positive bowel sounds. No evidence of hepatosplenomegaly. Currently, no rebound or guarding noted. EXTREMITIES: Negative for clubbing, cyanosis, or edema. RECTAL: Not performed. GENITALIA: Not performed. NEUROLOGIC: Cranial nerves II through XII are grossly intact without focal deficits. Motor strength is 5/5 bilaterally intact. Deep tendon reflexes are 2+ plantar. Assessment/Plan Assessment/Plan ASSESSMENT: This is a 69-year-old female: 1. Generalized weakness. 2. Shortness of breath. 3. Hyperglycemia. 4. Uncontrolled diabetes type 2. 5. Hypertensive emergency. 6. Hyponatremia. TREATMENT: 1. Generalized weakness/shortness of breath/hyperglycemia/uncontrolled diabetes type 2. The patient has been placed on Levemir 15 units subcutaneously twice daily. A NovoLog sliding scale has been instituted. Accu-Cheks will be performed before meals and nightly. 2. Hypertensive emergency. The patient is currently receiving clonidine 0.1 mg q.4 h. p.r.n. 3. Hyponatremia. The patient is currently receiving intravenous fluids with sodium chloride. Jose Hernandez MD Sep 24, 2019 13:54
--- NOTE | 2019-09-24 16:26 | NUR ---
HOMELESS COORDINATOR spoke with patient and patient is alert and oriented. Patient does have a contact number [phone]. Patient states she is chronically homeless. Patient states she came from [place] to stay with a friend and things didn't work out. Patient states she was staying at [facility] for a few months before she returned to [place]. Patient states once she returned to [place], she wasn't feeling well and came to [place]. Patient states she is receiving around $500 in disability. Patient states she does not suffering from any drug abuse. Patient states she is bipolar and deals with depression. Mental health resources provided. Patient would like to return to recuperative care upon discharge, but didn't know the process. CM doesn't feel the patient requires recup care and resources for half-way were provided to patient. patient does have a account contact associate, daughter Thalia Cole . Patient continues to require medical intervention. Will continue to monitor and assist as needed.
--- NOTE | 2019-09-24 20:06 | NUR ---
HAND-OFF: Report given to Nilda WASSERMAN, pt in stable condition.
--- NOTE | 2019-09-24 20:10 | NUR ---
NURSE NOTES: Received report from LISY Fagan. Rounds done. No distress noted, was ambulating in hallway. Bed in low position, side rails up x2, call light within reach. Will continue to monitor.
[2019-09-25 00:15] VITALS: BP 128/83
[2019-09-25] MEDS: HydrALAZINE 25mg tab ORAL SCH ×4 (00:17→18:00)
--- NOTE | 2019-09-25 06:26 | General Progress Note ---
Assessment/Plan Problem List: (1) JOLENE (acute kidney injury) ICD Codes: N17.9 - Acute kidney failure, unspecified SNOMED: 62715048, 4874968 (2) Diabetes ICD Codes: E11.9 - Type 2 diabetes mellitus without complications SNOMED: 21445975 (3) HTN (hypertension) ICD Codes: I10 - Essential (primary) hypertension SNOMED: 47676395 (4) Cocaine use ICD Codes: F14.90 - Cocaine use, unspecified, uncomplicated SNOMED: 306731188 (5) Hyperglycemia ICD Codes: R73.9 - Hyperglycemia, unspecified SNOMED: 95694203 Assessment/Plan: continue Levemir 15 units bid continue Novolog 8 units ac tid continue NISS ac / hs Subjective Allergies: Coded Allergies: PENICILLINS (Verified Allergy, Mild, Rash, 09/08/18) Uncoded Allergies: PENICILLIN (Allergy, Unknown, 09/22/19) All Systems: reviewed and negative except above Subjective events noted Item Value Date Time Bedside Blood Glucose 191 mg/dl H 09/24/19 2141 Bedside Blood Glucose 316 mg/dl H 09/24/19 1716 Bedside Blood Glucose 266 mg/dl H 09/24/19 1150 Bedside Blood Glucose 217 mg/dl H 09/24/19 0817 Bedside Blood Glucose 217 mg/dl H 09/24/19 0650 Objective Last 24 Hour Vital Signs Date Time Temp Pulse Resp B/P (MAP) Pulse Ox O2 Delivery O2 Flow Rate FiO2 09/25/19 00:17 128/83 09/25/19 00:15 98.3 88 20 128/83 (98) 98 09/24/19 21:00 Room Air 09/24/19 20:00 98.0 90 19 143/91 (108) 97 09/24/19 19:33 76 18 98 Room Air 21 09/24/19 17:15 126/79 09/24/19 16:00 97.6 79 18 126/79 (95) 98 09/24/19 13:03 170/101 09/24/19 12:00 97.5 78 18 170/101 (124) 97 09/24/19 09:00 Room Air 09/24/19 09:00 97.3 73 18 164/94 (117) 100 09/24/19 09:00 Room Air 09/24/19 08:14 73 173/100 09/24/19 08:00 97.3 73 18 175/100 (125) 100 09/24/19 07:25 73 18 98 Room Air 21 Intake and Output 09/24/19 09/25/19 18:59 06:59 Intake Total 1350 ml 1200 ml Balance 1350 ml 1200 ml Intake Oral 1350 ml 1200 ml # Voids 3 Laboratory Tests 09/24/19 08:12: White Blood Count 7.0, Red Blood Count 4.80, Hemoglobin 12.4, Hematocrit 37.9, Mean Corpuscular Volume 79L, Mean Corpuscular Hemoglobin 25.8L, Mean Corpuscular Hemoglobin Concent 32.6, Red Cell Distribution Width 11.5L, Platelet Count 250, Mean Platelet Volume 7.3, Neutrophils (%) (Auto) 50.3, Lymphocytes (%) (Auto) 40.5, Monocytes (%) (Auto) 5.4, Eosinophils (%) (Auto) 2.9, Basophils (%) (Auto) 0.9, Sodium Level 135L, Potassium Level 4.0, Chloride Level 100, Carbon Dioxide Level 26, Anion Gap 9, Blood Urea Nitrogen 16, Creatinine 1.3, Estimat Glomerular Filtration Rate 49.1, Glucose Level 294#H, Calcium Level 8.6 Height (Feet): 5 Height (Inches): 9.00 Weight (Pounds): 170 General Appearance: no apparent distress Neck: normal alignment Cardiovascular: normal rate Respiratory/Chest: lungs clear Abdomen: normal bowel sounds Objective Current Medications Medications (Trade) Dose Ordered Sig/Manny Route PRN Reason Start Time Stop Time Status Last Admin Dose Admin Acetaminophen (Tylenol) 650 mg Q4H PRN ORAL fever 09/22/19 23:45 10/22/19 23:44 Amlodipine Besylate (Norvasc) 5 mg DAILY ORAL 09/25/19 09:00 10/25/19 08:59 Clonidine HCl (Catapres Tab) 0.1 mg Q4H PRN ORAL sbp more than 160 09/22/19 23:45 10/22/19 23:44 09/23/19 23:28 Dextrose (Dextrose 50%) 25 ml Q30M PRN IV Hypoglycemia 09/23/19 13:30 10/23/19 13:29 Dextrose (Dextrose 50%) 50 ml Q30M PRN IV Hypoglycemia 09/23/19 13:30 10/23/19 13:29 Hydralazine HCl (Apresoline) 25 mg Q6HR ORAL 09/24/19 12:00 10/24/19 11:59 09/25/19 00:17 Insulin Aspart (NovoLOG) BEFORE MEALS AND HS SUBQ 09/23/19 06:30 10/23/19 06:29 09/24/19 21:40 Insulin Aspart (NovoLOG) 8 units NOVOTIAC SUBQ 09/23/19 16:50 10/23/19 16:49 09/24/19 17:15 Insulin Detemir (Levemir) 15 units Q12HR SUBQ 09/23/19 21:00 10/23/19 20:59 09/24/19 21:41 Ketorolac Tromethamine (Toradol 30mg) 30 mg Q6H PRN IV moderate pain 4-6 09/22/19 23:45 09/27/19 23:44 09/23/19 20:41 Polyethylene Glycol (Miralax) 17 gm HSPRN PRN ORAL Constipation 09/22/19 23:45 10/22/19 23:44 Temazepam (Restoril) 15 mg HSPRN PRN ORAL Insomnia 09/22/19 23:45 09/29/19 23:44 Haresh Matos MD Sep 25, 2019 06:26
[2019-09-25] MEDS: NovoLOG Insulin Flexpen SUBQ SCH ×7 (07:00→21:49)
--- NOTE | 2019-09-25 07:04 | NUR ---
NURSE NOTES: Bedside glucose 417 mg/dl. Repeated and lab glucose ordered. See eMAR for insulin coverage. Patient alert, oriented, sleepy but easily awakened. No distress noted at this time. Will notify .
--- NOTE | 2019-09-25 07:13 | NUR ---
NURSE NOTES: Dr Matos contacted, left message regarding bedside blood glucose of 417 mg/dl, insulin given and lab random glucose ordered per protocol. Awaiting call back.
--- NOTE | 2019-09-25 07:20 | NUR ---
HAND-OFF: Report given to LISY Mckee. Aware of critical value notification for bedside glucose 417 mg/dl. Awaiting MD call back.
[2019-09-25 07:26] LABS: BASOPHILS % (AUTO) 0.8 % (0.0-2.0); EOSINOPHILS % (AUTO) 3.5 % (0.0-3.0); HEMATOCRIT 36.4 % (37.0-47.0); HEMOGLOBIN 12.3 G/DL (12.0-16.0); LYMPHOCYTES % (AUTO) 39.1 % (20.0-45.0); MEAN CORPUSCULAR VOLUME 79 FL (80-99); MONOCYTES % (AUTO) 5.8 % (1.0-10.0); NEUTROPHILS % (AUTO) 50.9 % (45.0-75.0); PLATELET COUNT 240 K/UL (150-450); RED BLOOD COUNT 4.62 M/UL (4.20-5.40); RED CELL DISTRIBUTION WIDTH 11.6 % (11.6-14.8); WHITE BLOOD COUNT 6.3 K/UL (4.8-10.8)
[2019-09-25 07:59] LABS: ALANINE AMINOTRANSFERASE 86 U/L (12-78); ALBUMIN 2.5 G/DL (3.4-5.0); ALBUMIN/GLOBULIN RATIO 0.7 (1.0-2.7); ALKALINE PHOSPHATASE 134 U/L (46-116); ANION GAP 8 mmol/L (5-15); ASPARTATE AMINO TRANSFERASE 73 U/L (15-37); BILIRUBIN,TOTAL 0.3 MG/DL (0.2-1.0); BLOOD UREA NITROGEN 27 mg/dL (7-18); CALCIUM 8.3 MG/DL (8.5-10.1); CARBON DIOXIDE 24 MMOL/L (21-32); CHLORIDE 102 MMOL/L (98-107); CREATININE 1.4 MG/DL (0.55-1.30); PHOSPHORUS 3.7 MG/DL (2.5-4.9); POTASSIUM 4.3 MMOL/L (3.5-5.1); SODIUM 134 MMOL/L (136-145)
[2019-09-25 08:00] VITALS: BP 131/91
--- NOTE | 2019-09-25 08:11 | NUR ---
NURSE NOTES: Received report from Nilda WASSERMAN. Patient is awake and oriented, no acute distress noted. Reporting no pain at this time. Per report, patient's bedside blood glucose was 417 this morning, blood glucose from peripheral draw was 420, insulin was given per sliding scale and Dr. Matos was called and voicemail left. Have not received callback from Dr. Matos as of this time. Will cancel critical value notification because blood glucose is not critically high. Will follow up with MD and re-check blood glucose as ordered.
[2019-09-25] MEDS: Levemir Flexpen SUBQ SCH ×2 (09:19→21:50)
[2019-09-25] MEDS ORDERED: NOVOLOG100 UNIT/4 SQ (09:23)
[2019-09-25] MEDS ORDERED: LANTUS SOL100 UNIT/1 SUBQ (09:24)
--- NOTE | 2019-09-25 09:43 | NUR ---
HOMELESS COORDINATOR HC followed up with shelters to check bed availability. HC spoke with Yuni at [facility], one bed available but patient must be outside at 7pm. Spoke with Rylee at [facility], no available beds. Spoke with Saran at [facility], unable to provide availability but patient is welcomed to come at 11am and 7pm for intake. These fdc are a first come first serve and does no guarantee placement. Patient is made aware of her options. Resources provided. Patient continues to require medical intervention. Will continue to monitor and assist as needed.
[2019-09-25 12:00] VITALS: BP 132/87
--- NOTE | 2019-09-25 12:11 | Pulmonology Progress Note ---
Assessment/Plan Problems: (1) JOLENE (acute kidney injury) (2) HTN (hypertension) (3) Diabetes (4) Cocaine use (5) Homelessness Assessment/Plan renal function is worse today BP better BS better dc iv fluids renal function better social service for homelessness. dc planning to rehab Subjective ROS Limited/Unobtainable: No Constitutional: Reports: no symptoms HEENT: Repors: no symptoms Respiratory: Reports: no symptoms Allergies: Coded Allergies: PENICILLINS (Verified Allergy, Mild, Rash, 09/08/18) Uncoded Allergies: PENICILLIN (Allergy, Unknown, 09/22/19) Objective Last 24 Hour Vital Signs Date Time Temp Pulse Resp B/P (MAP) Pulse Ox O2 Delivery O2 Flow Rate FiO2 09/25/19 09:18 83 131/91 09/25/19 09:00 Room Air 09/25/19 08:00 98.3 83 17 131/91 (104) 98 09/25/19 06:43 131/87 09/25/19 00:17 128/83 09/25/19 00:15 98.3 88 20 128/83 (98) 98 09/24/19 21:00 Room Air 09/24/19 20:00 98.0 90 19 143/91 (108) 97 09/24/19 19:33 76 18 98 Room Air 21 09/24/19 17:15 126/79 09/24/19 16:00 97.6 79 18 126/79 (95) 98 09/24/19 13:03 170/101 Intake and Output 09/24/19 09/25/19 19:00 07:00 Intake Total 1350 ml 1200 ml Balance 1350 ml 1200 ml Intake Oral 1350 ml 1200 ml # Voids 3 General Appearance: WD/WN HEENT: normocephalic, anicteric Respiratory/Chest: chest wall non-tender, lungs clear, chest wall tender Breasts: no masses Cardiovascular: normal peripheral pulses Abdomen: normal bowel sounds, soft, non tender Genitourinary: normal external genitalia Skin: no rash, no lesions Microbiology Date/Time Source Procedure Growth Status 09/23/19 00:00 Nasal Nares MRSA Culture - Final NO METHICILLIN RESISTANT STAPH AUREUS... Complete 09/23/19 00:00 Rectum - Final NO CARBAPENEM-RESISTANT ENTEROBACTERI... Complete 09/23/19 00:00 Rectum VRE Culture - Final NO VANCOMYCIN RESISTANT ENTEROCOCCUS ... Complete Laboratory Tests 09/25/19 06:40: White Blood Count 6.3, Red Blood Count 4.62, Hemoglobin 12.3, Hematocrit 36.4L, Mean Corpuscular Volume 79L, Mean Corpuscular Hemoglobin 26.6L, Mean Corpuscular Hemoglobin Concent 33.8, Red Cell Distribution Width 11.6, Platelet Count 240, Mean Platelet Volume 7.5, Neutrophils (%) (Auto) 50.9, Lymphocytes (% ) (Auto) 39.1, Monocytes (%) (Auto) 5.8, Eosinophils (%) (Auto) 3.5H, Basophils (%) (Auto) 0.8, Erythrocyte Sedimentation Rate 19, Sodium Level 134L, Potassium Level 4.3, Chloride Level 102, Carbon Dioxide Level 24, Anion Gap 8, Blood Urea Nitrogen 27H, Creatinine 1.4H, Estimat Glomerular Filtration Rate 45.1, Glucose Level 420#H, Calcium Level 8.3L, Phosphorus Level 3.7, Magnesium Level 1.6L, Total Bilirubin 0.3, Aspartate Amino Transf (AST/SGOT) 73H, Alanine Aminotransferase (ALT/SGPT) 86H, Alkaline Phosphatase 134H, C-Reactive Protein, Quantitative < 0.4, Total Protein 6.3L, Albumin 2.5L, Globulin 3.8, Albumin/ Globulin Ratio 0.7L Current Medications Medications (Trade) Dose Ordered Sig/Manny Route PRN Reason Start Time Stop Time Status Last Admin Dose Admin Acetaminophen (Tylenol) 650 mg Q4H PRN ORAL fever 09/22/19 23:45 10/22/19 23:44 Amlodipine Besylate (Norvasc) 5 mg DAILY ORAL 09/25/19 09:00 10/25/19 08:59 09/25/19 09:18 Clonidine HCl (Catapres Tab) 0.1 mg Q4H PRN ORAL sbp more than 160 09/22/19 23:45 10/22/19 23:44 09/23/19 23:28 Dextrose (Dextrose 50%) 25 ml Q30M PRN IV Hypoglycemia 09/23/19 13:30 10/23/19 13:29 Dextrose (Dextrose 50%) 50 ml Q30M PRN IV Hypoglycemia 09/23/19 13:30 10/23/19 13:29 Hydralazine HCl (Apresoline) 25 mg Q6HR ORAL 09/24/19 12:00 10/24/19 11:59 09/25/19 06:43 Insulin Aspart (NovoLOG) BEFORE MEALS AND HS SUBQ 09/23/19 06:30 10/23/19 06:29 09/25/19 11:40 Insulin Aspart (NovoLOG) 8 units NOVOTIAC SUBQ 09/23/19 16:50 10/23/19 16:49 09/25/19 07:00 Insulin Detemir (Levemir) 15 units Q12HR SUBQ 09/23/19 21:00 10/23/19 20:59 09/25/19 09:19 Polyethylene Glycol (Miralax) 17 gm HSPRN PRN ORAL Constipation 09/22/19 23:45 10/22/19 23:44 Temazepam (Restoril) 15 mg HSPRN PRN ORAL Insomnia 09/22/19 23:45 09/29/19 23:44 Katya Cheng MD Sep 25, 2019 12:11
--- NOTE | 2019-09-25 12:12 | NUR ---
NURSE NOTES: Patient seen by Dr. Cheng. Informed MD that patient's blood glucose this morning was 420 via lab draw. MD is aware, patient will not be discharged today, orders entered by MD, will carry out.
[2019-09-25 12:25] LABS: CREATINE KINASE 57 U/L (26-308)
[2019-09-25] MEDS ORDERED: HYDRALAZINE HCL25 M1 ORAL (13:24)
[2019-09-25] MEDS ORDERED: NOVOLOG100 UNITS1 SUBQ (13:24)
[2019-09-25] MEDS ORDERED: LEVEMIR FL100 UNIT/1 SUBQ (13:24)
[2019-09-25] MEDS ORDERED: QUETIAPINE FUM200 MG ORAL (13:24)
[2019-09-25] MEDS ORDERED: NORVASC5 MG ORAL (13:24)
--- NOTE | 2019-09-25 13:27 | NUR ---
NURSE NOTES: Per Dr. Cheng, discharge patient if creatinine is less than 1.4. Will follow up for lab results. Lab at bedside drawing patient.
[2019-09-25 13:57] LABS: ANION GAP 8 mmol/L (5-15); BLOOD UREA NITROGEN 27 mg/dL (7-18); CALCIUM 8.6 MG/DL (8.5-10.1); CARBON DIOXIDE 25 MMOL/L (21-32); CHLORIDE 104 MMOL/L (98-107); CREATININE 1.5 MG/DL (0.55-1.30); POTASSIUM 3.9 MMOL/L (3.5-5.1); SODIUM 137 MMOL/L (136-145)
--- NOTE | 2019-09-25 15:27 | NUR ---
NURSE NOTES: Informed Dr. Cheng that patient's creatinine is 1.5. MD ordered to hold discharge until tomorrow. Discharge order entered.
[2019-09-25 16:00] VITALS: BP 147/94
--- NOTE | 2019-09-25 16:31 | NUR ---
*-* NO INSURANCE INFORMATION IN THE BAR UNABLE TO SEND CLINICALS OR REVIEWS *-*
--- NOTE | 2019-09-25 16:53 | Cardiology Report ---
APPROVED REPORT EKG Measurement Heart [id number] NC 180P79 [id number] Normal sinus rhythm Possible Left atrial enlargement Borderline ECG
--- NOTE | 2019-09-25 17:00 | NUR ---
NURSE NOTES: Patient provided with receptacle to collect urine sample and educated to inform RN when she provides sample, patient verbalized understanding.
--- NOTE | 2019-09-25 17:26 | Internal Med Progress Note ---
Subjective Date of Service: Sep 25, 2019 Physician Name Jose Hernandez Attending Physician Antolin Baer MD Current Medications Medications (Trade) Dose Ordered Sig/Manny Route PRN Reason Start Time Stop Time Status Last Admin Dose Admin Acetaminophen (Tylenol) 650 mg Q4H PRN ORAL fever 09/22/19 23:45 10/22/19 23:44 Amlodipine Besylate (Norvasc) 5 mg DAILY ORAL 09/25/19 09:00 10/25/19 08:59 09/25/19 09:18 Clonidine HCl (Catapres Tab) 0.1 mg Q4H PRN ORAL sbp more than 160 09/22/19 23:45 10/22/19 23:44 09/23/19 23:28 Dextrose (Dextrose 50%) 25 ml Q30M PRN IV Hypoglycemia 09/23/19 13:30 10/23/19 13:29 Dextrose (Dextrose 50%) 50 ml Q30M PRN IV Hypoglycemia 09/23/19 13:30 10/23/19 13:29 Hydralazine HCl (Apresoline) 25 mg Q6HR ORAL 09/24/19 12:00 10/24/19 11:59 09/25/19 06:43 Insulin Aspart (NovoLOG) BEFORE MEALS AND HS SUBQ 09/23/19 06:30 10/23/19 06:29 09/25/19 17:17 Insulin Aspart (NovoLOG) 8 units NOVOTIAC SUBQ 09/23/19 16:50 10/23/19 16:49 09/25/19 17:18 Insulin Detemir (Levemir) 15 units Q12HR SUBQ 09/23/19 21:00 10/23/19 20:59 09/25/19 09:19 Polyethylene Glycol (Miralax) 17 gm HSPRN PRN ORAL Constipation 09/22/19 23:45 10/22/19 23:44 Sodium Chloride 1,000 ml @ 150 mls/hr Q6H40M IV 09/25/19 12:15 10/25/19 12:14 09/25/19 13:30 Temazepam (Restoril) 15 mg HSPRN PRN ORAL Insomnia 09/22/19 23:45 09/29/19 23:44 Allergies: Coded Allergies: PENICILLINS (Verified Allergy, Mild, Rash, 09/08/18) Uncoded Allergies: PENICILLIN (Allergy, Unknown, 09/22/19) ROS Limited/Unobtainable: No Constitutional: Reports: no symptoms HEENT: Reports: no symptoms Cardiovascular: Reports: no symptoms Respiratory: Reports: no symptoms Gastrointestinal/Abdominal: Reports: no symptoms Genitourinary: Reports: no symptoms Neurologic/Psychiatric: Reports: no symptoms Subjective 69 YO F admitted with gen weakness. Now hyperglycemia and hypertensive emergency. Cover for Int Saul-Dr Baer Objective Last Vital Signs Date Time Temp Pulse Resp B/P (MAP) Pulse Ox O2 Delivery O2 Flow Rate FiO2 09/25/19 12:00 98.3 88 17 132/87 (102) 98 09/25/19 09:00 Room Air 09/24/19 19:33 21 Laboratory Tests Test 09/25/19 06:40 09/25/19 13:25 White Blood Count 6.3 K/UL (4.8-10.8) Red Blood Count 4.62 M/UL (4.20-5.40) Hemoglobin 12.3 G/DL (12.0-16.0) Hematocrit 36.4 % (37.0-47.0) L Mean Corpuscular Volume 79 FL (80-99) L Mean Corpuscular Hemoglobin 26.6 PG (27.0-31.0) L Mean Corpuscular Hemoglobin Concent 33.8 G/DL (32.0-36.0) Red Cell Distribution Width 11.6 % (11.6-14.8) Platelet Count 240 K/UL (150-450) Mean Platelet Volume 7.5 FL (6.5-10.1) Neutrophils (%) (Auto) 50.9 % (45.0-75.0) Lymphocytes (%) (Auto) 39.1 % (20.0-45.0) Monocytes (%) (Auto) 5.8 % (1.0-10.0) Eosinophils (%) (Auto) 3.5 % (0.0-3.0) H Basophils (%) (Auto) 0.8 % (0.0-2.0) Erythrocyte Sedimentation Rate 19 MM/HR (0-30) Sodium Level 134 MMOL/L (136-145) L 137 MMOL/L (136-145) Potassium Level 4.3 MMOL/L (3.5-5.1) 3.9 MMOL/L (3.5-5.1) Chloride Level 102 MMOL/L (98-107) 104 MMOL/L (98-107) Carbon Dioxide Level 24 MMOL/L (21-32) 25 MMOL/L (21-32) Anion Gap 8 mmol/L (5-15) 8 mmol/L (5-15) Blood Urea Nitrogen 27 mg/dL (7-18) H 27 mg/dL (7-18) H Creatinine 1.4 MG/DL (0.55-1.30) H 1.5 MG/DL (0.55-1.30) H Estimat Glomerular Filtration Rate 45.1 mL/min (>60) 41.7 mL/min (>60) Glucose Level 420 MG/DL (74-106) #H 170 MG/DL (74-106) #H Uric Acid 4.4 MG/DL (2.6-7.2) Calcium Level 8.3 MG/DL (8.5-10.1) L 8.6 MG/DL (8.5-10.1) Phosphorus Level 3.7 MG/DL (2.5-4.9) Magnesium Level 1.6 MG/DL (1.8-2.4) L Total Bilirubin 0.3 MG/DL (0.2-1.0) Aspartate Amino Transf (AST/SGOT) 73 U/L (15-37) H Alanine Aminotransferase (ALT/SGPT) 86 U/L (12-78) H Alkaline Phosphatase 134 U/L (46-116) H Total Creatine Kinase 57 U/L (26-308) C-Reactive Protein, Quantitative < 0.4 mg/dL (0.00-0.90) Total Protein 6.3 G/DL (6.4-8.2) L Albumin 2.5 G/DL (3.4-5.0) L Globulin 3.8 g/dL Albumin/Globulin Ratio 0.7 (1.0-2.7) L Microbiology Date/Time Source Procedure Growth Status 09/23/19 00:00 Nasal Nares MRSA Culture - Final NO METHICILLIN RESISTANT STAPH AUREUS... Complete 09/23/19 00:00 Rectum - Final NO CARBAPENEM-RESISTANT ENTEROBACTERI... Complete 09/23/19 00:00 Rectum VRE Culture - Final NO VANCOMYCIN RESISTANT ENTEROCOCCUS ... Complete Intake and Output 09/24/19 09/25/19 19:00 07:00 Intake Total 1350 ml 1200 ml Balance 1350 ml 1200 ml Intake Oral 1350 ml 1200 ml # Voids 3 Objective PHYSICAL EXAMINATION: GENERAL: The patient is a well-developed and well-nourished female, no apparent distress. HEENT: Eyes, pupils equal and responsive to light and accommodation. Extraocular movements are intact. NECK: Supple without lymphadenopathy. CHEST: Lungs are clear to auscultation bilaterally without wheezes or rales. CARDIOVASCULAR: Regular rate. S1 and S2 are normal without murmurs, rubs, or gallops. ABDOMEN: Soft, nontender, and nondistended. Positive bowel sounds. No evidence of hepatosplenomegaly. Currently, no rebound or guarding noted. EXTREMITIES: Negative for clubbing, cyanosis, or edema. RECTAL: Not performed. GENITALIA: Not performed. NEUROLOGIC: Cranial nerves II through XII are grossly intact without focal deficits. Motor strength is 5/5 bilaterally intact. Deep tendon reflexes are 2+ plantar. Assessment/Plan Assessment/Plan ASSESSMENT: This is a 69-year-old female: 1. Generalized weakness. 2. Shortness of breath. 3. Hyperglycemia. 4. Uncontrolled diabetes type 2. 5. Hypertensive emergency. 6. Hyponatremia. TREATMENT: 1. Generalized weakness/shortness of breath/hyperglycemia/uncontrolled diabetes type 2. The patient has been placed on Levemir 15 units subcutaneously twice daily. A NovoLog sliding scale has been instituted. Accu-Cheks will be performed before meals and nightly. 2. Hypertensive emergency. The patient is currently receiving clonidine 0.1 mg q.4 h. p.r.n. 3. Hyponatremia. The patient is currently receiving intravenous fluids with sodium chloride. Jose Hernandez MD Sep 25, 2019 17:26
--- NOTE | 2019-09-25 19:41 | NUR ---
HAND-OFF: Report given to Nilda WASSERMAN.
--- NOTE | 2019-09-25 19:45 | NUR ---
NURSE NOTES: Received report from LISY Mckee. Patient alert, oriented. IVF running in RFA. No distress noted. Bed in low position, locked, side rails up x2, call light within reach. Aware of need to collect urine. Will continue to monitor.
[2019-09-25 20:00] VITALS: BP 153/98
[2019-09-25 22:55] LABS: APPEARANCE,URINE CLEAR; BILIRUBIN, URINE NEGATIVE (NEGATIVE); COLOR,URINE PALE YELLOW; GLUCOSE, URINE (UA) 3+ (NEGATIVE); KETONES,URINE NEGATIVE (NEGATIVE); LEUKOCYTE ESTERASE ,URINE NEGATIVE (NEGATIVE); NITRITE,URINE NEGATIVE (NEGATIVE); PH,URINE 6 (4.5-8.0); PROTEIN,URINE 2+ (NEGATIVE); UROBILINOGEN,URINE NORMAL MG/DL (0.0-1.0)
[2019-09-26] VITALS: BP 141/90
[2019-09-26] MEDS ORDERED: QUEtiapine 200mg tab ORAL SCH
[2019-09-26] MEDS ORDERED: Levemir Flexpen SUBQ SCH
[2019-09-26] MEDS ORDERED: NovoLOG Insulin Flexpen SUBQ SCH
[2019-09-26] MEDS ORDERED: HydrALAZINE 25mg tab ORAL SCH
[2019-09-26] MEDS: Miralax 17gm pkt ORAL PRN ×2 (00:36→17:32)
[2019-09-26] MEDS: HydrALAZINE 25mg tab ORAL SCH ×4 (00:37→17:32)
[2019-09-26 06:30] VITALS: BP 147/94
[2019-09-26] MEDS: NovoLOG Insulin Flexpen SUBQ SCH ×7 (06:30→21:17)
--- NOTE | 2019-09-26 06:40 | General Progress Note ---
Assessment/Plan Problem List: (1) JOLENE (acute kidney injury) ICD Codes: N17.9 - Acute kidney failure, unspecified SNOMED: 19524088, 0991986 (2) Diabetes ICD Codes: E11.9 - Type 2 diabetes mellitus without complications SNOMED: 50224337 (3) HTN (hypertension) ICD Codes: I10 - Essential (primary) hypertension SNOMED: 76538704 (4) Cocaine use ICD Codes: F14.90 - Cocaine use, unspecified, uncomplicated SNOMED: 407390808 (5) Hyperglycemia ICD Codes: R73.9 - Hyperglycemia, unspecified SNOMED: 07924267 Assessment/Plan: increase Levemir to 18 units bid continue Novolog 8 units ac tid continue NISS ac / hs Subjective Allergies: Coded Allergies: PENICILLINS (Verified Allergy, Mild, Rash, 09/08/18) Uncoded Allergies: PENICILLIN (Allergy, Unknown, 09/22/19) All Systems: reviewed and negative except above Subjective events noted fasting glucose elevated Item Value Date Time Bedside Blood Glucose 181 mg/dl H 09/25/19 2150 Bedside Blood Glucose 162 mg/dl H 09/25/19 1718 Bedside Blood Glucose 204 mg/dl H 09/25/19 1224 Bedside Blood Glucose 417 mg/dl H 09/25/19 0919 Glucose Level 420 MG/DL H # 09/25/19 0640 Objective Last 24 Hour Vital Signs Date Time Temp Pulse Resp B/P (MAP) Pulse Ox O2 Delivery O2 Flow Rate FiO2 09/26/19 00:37 141/90 09/26/19 00:00 98.0 96 18 141/90 (107) 99 09/25/19 21:00 Room Air 09/25/19 20:00 98.0 86 20 153/98 (116) 98 09/25/19 16:00 98.3 84 16 147/94 (111) 97 09/25/19 12:00 98.3 88 17 132/87 (102) 98 09/25/19 12:00 132/87 09/25/19 09:18 83 131/91 09/25/19 09:00 Room Air 09/25/19 08:00 98.3 83 17 131/91 (104) 98 09/25/19 06:43 131/87 Intake and Output 09/25/19 09/26/19 18:59 06:59 Intake Total 598 ml 1350 ml Balance 598 ml 1350 ml Intake Oral 598 ml IV Total 1350 ml # Voids 2 Laboratory Tests 09/25/19 06:40: White Blood Count 6.3, Red Blood Count 4.62, Hemoglobin 12.3, Hematocrit 36.4L, Mean Corpuscular Volume 79L, Mean Corpuscular Hemoglobin 26.6L, Mean Corpuscular Hemoglobin Concent 33.8, Red Cell Distribution Width 11.6, Platelet Count 240, Mean Platelet Volume 7.5, Neutrophils (%) (Auto) 50.9, Lymphocytes (% ) (Auto) 39.1, Monocytes (%) (Auto) 5.8, Eosinophils (%) (Auto) 3.5H, Basophils (%) (Auto) 0.8, Erythrocyte Sedimentation Rate 19, Sodium Level 134L, Potassium Level 4.3, Chloride Level 102, Carbon Dioxide Level 24, Anion Gap 8, Blood Urea Nitrogen 27H, Creatinine 1.4H, Estimat Glomerular Filtration Rate 45.1, Glucose Level 420#H, Uric Acid 4.4, Calcium Level 8.3L, Phosphorus Level 3.7, Magnesium Level 1.6L, Total Bilirubin 0.3, Aspartate Amino Transf (AST/SGOT) 73H, Alanine Aminotransferase (ALT/SGPT) 86H, Alkaline Phosphatase 134H, Total Creatine Kinase 57, C-Reactive Protein, Quantitative < 0.4, Total Protein 6.3L, Albumin 2.5L, Globulin 3.8, Albumin/Globulin Ratio 0.7L 09/25/19 13:25: Sodium Level 137, Potassium Level 3.9, Chloride Level 104, Carbon Dioxide Level 25, Anion Gap 8, Blood Urea Nitrogen 27H, Creatinine 1.5H, Estimat Glomerular Filtration Rate 41.7, Glucose Level 170#H, Calcium Level 8.6 09/25/19 22:35: Urine Color Pale yellow, Urine Appearance Clear, Urine pH 6, Urine Specific [place] 1.005, Urine Protein 2+H, Urine Glucose (UA) 3+H, Urine Ketones Negative , Urine Blood Negative, Urine Nitrite Negative, Urine Bilirubin Negative, Urine Urobilinogen Normal, Urine Leukocyte Esterase Negative, Urine RBC 0, Urine WBC 0 , Urine Squamous Epithelial Cells None, Urine Bacteria None, Urine Eosinophils None seen, Urine Osmolality 370L, Urine Random Creatinine [Pending], Urine Random Microalbumin [Pending], Urine Random Sodium 106, Urine Microalbumin/ Creatinine Ratio [Pending] 09/26/19 06:31: White Blood Count [Pending], Red Blood Count [Pending], Hemoglobin [Pending], Hematocrit [Pending], Mean Corpuscular Volume [Pending], Mean Corpuscular Hemoglobin [Pending], Mean Corpuscular Hemoglobin Concent [Pending], Red Cell Distribution Width [Pending], Platelet Count [Pending], Mean Platelet Volume [ Pending], Neutrophils (%) (Auto) [Pending], Lymphocytes (%) (Auto) [Pending], Monocytes (%) (Auto) [Pending], Eosinophils (%) (Auto) [Pending], Basophils (%) (Auto) [Pending], Erythrocyte Sedimentation Rate [Pending], Sodium Level [ Pending], Potassium Level [Pending], Chloride Level [Pending], Carbon Dioxide Level [Pending], Blood Urea Nitrogen [Pending], Creatinine [Pending], Estimat Glomerular Filtration Rate [Pending], Glucose Level [Pending], Calcium Level [ Pending], Phosphorus Level [Pending], Magnesium Level [Pending], Total Bilirubin [Pending], Aspartate Amino Transf (AST/SGOT) [Pending], Alanine Aminotransferase (ALT/SGPT) [Pending], Alkaline Phosphatase [Pending], C- Reactive Protein, Quantitative [Pending], Total Protein [Pending], Albumin [ Pending], Globulin [Pending] Height (Feet): 5 Height (Inches): 9.00 Weight (Pounds): 170 General Appearance: no apparent distress Neck: normal alignment Cardiovascular: normal rate Respiratory/Chest: lungs clear Abdomen: normal bowel sounds Pelvis: normal external exam Objective Current Medications Medications (Trade) Dose Ordered Sig/Manny Route PRN Reason Start Time Stop Time Status Last Admin Dose Admin Acetaminophen (Tylenol) 650 mg Q4H PRN ORAL fever 09/22/19 23:45 10/22/19 23:44 Amlodipine Besylate (Norvasc) 5 mg DAILY ORAL 09/25/19 09:00 10/25/19 08:59 09/25/19 09:18 Clonidine HCl (Catapres Tab) 0.1 mg Q4H PRN ORAL sbp more than 160 09/22/19 23:45 10/22/19 23:44 09/23/19 23:28 Dextrose (Dextrose 50%) 25 ml Q30M PRN IV Hypoglycemia 09/23/19 13:30 10/23/19 13:29 Dextrose (Dextrose 50%) 50 ml Q30M PRN IV Hypoglycemia 09/23/19 13:30 10/23/19 13:29 Hydralazine HCl (Apresoline) 25 mg Q6HR ORAL 09/24/19 12:00 10/24/19 11:59 09/26/19 00:37 Insulin Aspart (NovoLOG) BEFORE MEALS AND HS SUBQ 09/23/19 06:30 10/23/19 06:29 09/25/19 21:49 Insulin Aspart (NovoLOG) 8 units NOVOTIAC SUBQ 09/23/19 16:50 10/23/19 16:49 09/25/19 17:18 Insulin Detemir (Levemir) 15 units Q12HR SUBQ 09/23/19 21:00 10/23/19 20:59 09/25/19 21:50 Polyethylene Glycol (Miralax) 17 gm HSPRN PRN ORAL Constipation 09/22/19 23:45 10/22/19 23:44 09/26/19 00:36 Sodium Chloride 1,000 ml @ 150 mls/hr Q6H40M IV 09/25/19 12:15 10/25/19 12:14 09/26/19 03:00 Temazepam (Restoril) 15 mg HSPRN PRN ORAL Insomnia 09/22/19 23:45 09/29/19 23:44 Haresh Matos MD Sep 26, 2019 06:40
[2019-09-26 06:58] LABS: ALANINE AMINOTRANSFERASE 114 U/L (12-78); ALBUMIN 2.8 G/DL (3.4-5.0); ALBUMIN/GLOBULIN RATIO 0.7 (1.0-2.7); ALKALINE PHOSPHATASE 92 U/L (46-116); ANION GAP 5 mmol/L (5-15); ASPARTATE AMINO TRANSFERASE 115 U/L (15-37); BILIRUBIN,TOTAL 0.3 MG/DL (0.2-1.0); CALCIUM 8.5 MG/DL (8.5-10.1); CARBON DIOXIDE 27 MMOL/L (21-32); CHLORIDE 107 MMOL/L (98-107); CREATININE 1.1 MG/DL (0.55-1.30); PHOSPHORUS 3.4 MG/DL (2.5-4.9); POTASSIUM 4.1 MMOL/L (3.5-5.1); SODIUM 139 MMOL/L (136-145)
[2019-09-26 07:18] LABS: BASOPHILS % (AUTO) 0.9 % (0.0-2.0); EOSINOPHILS % (AUTO) 3.1 % (0.0-3.0); HEMATOCRIT 37.6 % (37.0-47.0); HEMOGLOBIN 12.6 G/DL (12.0-16.0); LYMPHOCYTES % (AUTO) 39.3 % (20.0-45.0); MEAN CORPUSCULAR VOLUME 78 FL (80-99); MONOCYTES % (AUTO) 6.2 % (1.0-10.0); NEUTROPHILS % (AUTO) 50.4 % (45.0-75.0); PLATELET COUNT 263 K/UL (150-450); RED BLOOD COUNT 4.82 M/UL (4.20-5.40); RED CELL DISTRIBUTION WIDTH 11.4 % (11.6-14.8); WHITE BLOOD COUNT 6.1 K/UL (4.8-10.8)
[2019-09-26 07:22] LABS: BLOOD UREA NITROGEN 22 mg/dL (7-18)
--- NOTE | 2019-09-26 07:39 | NUR ---
HAND-OFF: Report given to LISY Suggs.
--- NOTE | 2019-09-26 07:40 | NUR ---
NURSE NOTES: Received report from LISY Munguia. Pt. AOx4. In RA. Sleeping comfortably. Denies any pain or discomfort. R FA 22g IV SL. Bed on lowest position, side rails upx2, brakes engaged. Call light within easy reach.
[2019-09-26 08:00] VITALS: BP 131/77
[2019-09-26] MEDS: Levemir Flexpen SUBQ SCH ×2 (09:09→21:16)
--- NOTE | 2019-09-26 09:30 | NUR ---
PT EVALUATION NOTE Patient seen for initial evaluation, see complete evaluation for details. Patient presents with generalized weakness and impaired balance which affects patient's ability to perform mobility tasks safely. Patient requires SBA for transfers and ambulation without assistive device. Patient's gait is unsteady however no loss of balance. Patient will benefit from skilled inpatient PT intervention to address strength, balance and safety for improved level of functional mobility with increased safety awareness and stable gait. Recommend discharge to SNF for further rehab once medically cleared by MD. DME needs to be determined based on patient's progress. Addendum: 09/26/19 at 1308 by VIOLETA BRENNAN PT Amended: Links added.
--- NOTE | 2019-09-26 10:27 | NUR ---
HOMELESS COORDINATOR HC followed up with shelters to check bed availability. Spoke with Madeline at [facility], unable to provide availability for beds but does state cots available. Patient is welcomed to come at 12pm for intake. These custodial are a first come first serve and does no guarantee placement. Patient is made aware of her options. Location provided.
--- NOTE | 2019-09-26 10:30 | NUR ---
NURSE NOTES: Pt aware of DC orders. Informed Need to verify regarding DC medications and prescriptions.
--- NOTE | 2019-09-26 11:01 | Diagnostic Imaging Report ---
Indication:Elevated Bun and Creatinine. Technique: Grayscale and duplex Doppler imaging of the kidneys performed. Comparison: None Findings: Size and contour of the kidneys are normal. The renal cortex appear abnormally echogenic. The right kidney is 10.5 cm in length.. The left kidney measures 10 cm. in length. A few tiny discrete cysts are noted within both kidneys. The IVC is patent. Urinary bladder is unremarkable. IMPRESSION: Suspected medical renal disease
--- NOTE | 2019-09-26 11:30 | NUR ---
NURSE NOTES: Communicated with Dr. Cheng regarding Pt's DC prescriptions and today's lab results.
--- NOTE | 2019-09-26 11:56 | Pulmonology Progress Note ---
Assessment/Plan Problems: (1) JOLENE (acute kidney injury) (2) HTN (hypertension) (3) Diabetes (4) Cocaine use (5) Homelessness Assessment/Plan renal function better tody BP better BS better renal function better social service for homelessness. dc planning to rehab Subjective ROS Limited/Unobtainable: No Constitutional: Reports: no symptoms HEENT: Repors: no symptoms Respiratory: Reports: no symptoms Allergies: Coded Allergies: PENICILLINS (Verified Allergy, Mild, Rash, 09/08/18) Uncoded Allergies: PENICILLIN (Allergy, Unknown, 09/22/19) Objective Last 24 Hour Vital Signs Date Time Temp Pulse Resp B/P (MAP) Pulse Ox O2 Delivery O2 Flow Rate FiO2 09/26/19 09:09 84 131/77 09/26/19 09:00 Room Air 09/26/19 08:00 97.1 84 19 131/77 (95) 99 09/26/19 06:45 147/94 09/26/19 06:30 98.0 77 20 147/94 (111) 98 09/26/19 00:37 141/90 09/26/19 00:00 98.0 96 18 141/90 (107) 99 09/25/19 21:00 Room Air 09/25/19 20:00 98.0 86 20 153/98 (116) 98 09/25/19 16:00 98.3 84 16 147/94 (111) 97 09/25/19 12:00 98.3 88 17 132/87 (102) 98 09/25/19 12:00 132/87 Intake and Output 09/25/19 09/26/19 18:59 06:59 Intake Total 598 ml 1710 ml Balance 598 ml 1710 ml Intake Oral 598 ml 360 ml IV Total 1350 ml # Voids 2 4 General Appearance: WD/WN HEENT: normocephalic, atraumatic Respiratory/Chest: chest wall non-tender, lungs clear, normal breath sounds Breasts: no masses Cardiovascular: normal peripheral pulses Abdomen: normal bowel sounds, soft, non tender Genitourinary: normal external genitalia Extremities: no clubbing Skin: no rash Neurologic/Psychiatric: slagger II-XII grossly normal Laboratory Tests 09/25/19 13:25: Sodium Level 137, Potassium Level 3.9, Chloride Level 104, Carbon Dioxide Level 25, Anion Gap 8, Blood Urea Nitrogen 27H, Creatinine 1.5H, Estimat Glomerular Filtration Rate 41.7, Glucose Level 170#H, Calcium Level 8.6 09/25/19 22:35: Urine Color Pale yellow, Urine Appearance Clear, Urine pH 6, Urine Specific [place] 1.005, Urine Protein 2+H, Urine Glucose (UA) 3+H, Urine Ketones Negative , Urine Blood Negative, Urine Nitrite Negative, Urine Bilirubin Negative, Urine Urobilinogen Normal, Urine Leukocyte Esterase Negative, Urine RBC 0, Urine WBC 0 , Urine Squamous Epithelial Cells None, Urine Bacteria None, Urine Eosinophils None seen, Urine Osmolality 370L, Urine Random Creatinine [Pending], Urine Random Microalbumin [Pending], Urine Random Sodium 106, Urine Microalbumin/ Creatinine Ratio [Pending] 09/26/19 06:31: Sodium Level 139, Potassium Level 4.1, Chloride Level 107, Carbon Dioxide Level 27, Anion Gap 5, Blood Urea Nitrogen 22H, Creatinine 1.1, Estimat Glomerular Filtration Rate 59.5, Glucose Level 123H, Calcium Level 8.5, White Blood Count 6.1, Red Blood Count 4.82, Hemoglobin 12.6, Hematocrit 37.6, Mean Corpuscular Volume 78L, Mean Corpuscular Hemoglobin 26.2L, Mean Corpuscular Hemoglobin Concent 33.5, Red Cell Distribution Width 11.4L, Platelet Count 263, Mean Platelet Volume 7.9, Neutrophils (%) (Auto) 50.4, Lymphocytes (%) (Auto) 39.3, Monocytes (%) (Auto) 6.2, Eosinophils (%) (Auto) 3.1H, Basophils (%) (Auto) 0.9 , Erythrocyte Sedimentation Rate 28, Phosphorus Level 3.4, Magnesium Level 1.4L , Total Bilirubin 0.3, Aspartate Amino Transf (AST/SGOT) 115H, Alanine Aminotransferase (ALT/SGPT) 114H, Alkaline Phosphatase 92, C-Reactive Protein, Quantitative < 0.4, Total Protein 6.9, Albumin 2.8L, Globulin 4.1, Albumin/ Globulin Ratio 0.7L Current Medications Medications (Trade) Dose Ordered Sig/Manny Route PRN Reason Start Time Stop Time Status Last Admin Dose Admin Acetaminophen (Tylenol) 650 mg Q4H PRN ORAL fever 09/22/19 23:45 10/22/19 23:44 Amlodipine Besylate (Norvasc) 5 mg DAILY ORAL 09/25/19 09:00 10/25/19 08:59 09/26/19 09:09 Clonidine HCl (Catapres Tab) 0.1 mg Q4H PRN ORAL sbp more than 160 09/22/19 23:45 10/22/19 23:44 09/23/19 23:28 Dextrose (Dextrose 50%) 25 ml Q30M PRN IV Hypoglycemia 09/23/19 13:30 10/23/19 13:29 Dextrose (Dextrose 50%) 50 ml Q30M PRN IV Hypoglycemia 09/23/19 13:30 10/23/19 13:29 Hydralazine HCl (Apresoline) 25 mg Q6HR ORAL 09/24/19 12:00 10/24/19 11:59 09/26/19 06:45 Insulin Aspart (NovoLOG) BEFORE MEALS AND HS SUBQ 09/23/19 06:30 10/23/19 06:29 09/25/19 21:49 Insulin Aspart (NovoLOG) 8 units NOVOTIAC SUBQ 09/23/19 16:50 10/23/19 16:49 09/26/19 06:48 Insulin Detemir (Levemir) 15 units Q12HR SUBQ 09/23/19 21:00 10/23/19 20:59 09/26/19 09:09 Polyethylene Glycol (Miralax) 17 gm HSPRN PRN ORAL Constipation 09/22/19 23:45 10/22/19 23:44 09/26/19 00:36 Sodium Chloride 1,000 ml @ 150 mls/hr Q6H40M IV 09/25/19 12:15 10/25/19 12:14 09/26/19 10:45 Temazepam (Restoril) 15 mg HSPRN PRN ORAL Insomnia 09/22/19 23:45 09/29/19 23:44 Katya Cheng MD Sep 26, 2019 11:56
[2019-09-26 12:00] VITALS: BP 146/86
--- NOTE | 2019-09-26 12:32 | NUR ---
NURSE NOTES: Informed Dr Cheng for the second time Pt.'s magnesium level. No orders at this time.
--- NOTE | 2019-09-26 13:30 | NUR ---
NURSE NOTES: Pt. claimed she has insurance and wants all her medications refilled before she leaves home.
--- NOTE | 2019-09-26 15:00 | NUR ---
NURSE NOTES: Communicated with Cathryn, senior international tax manager, regarding Pt's insurance [employer] medicare RX Saver . Per Pt. her insurance covers her medications.
--- NOTE | 2019-09-26 15:30 | NUR ---
NURSE NOTES: Pharmacy informed medication ready for pick pack worker.
[2019-09-26 16:00] VITALS: BP 129/82
--- NOTE | 2019-09-26 16:17 | NUR ---
HOMELESS COORDINATOR [facility] [address] [place] [id number] SERVICE HOURS Intake hours for single women are Tuesday through Tuesday, 12-;30pm - 6:30pm; Tuesday and Tuesday, 12:00pm to 6:30pm on a first-come, first-served basis. [phone] Service/Intake and Administration
--- NOTE | 2019-09-26 17:50 | NUR ---
NURSE NOTES: Transportation contacted. Informed pickler helper time 30min to an hour. Communicated with CN, Pt. would not be able to make it to skilled nursing.
--- NOTE | 2019-09-26 18:01 | NUR ---
NURSE NOTES: Returned Pt's medications back to pharmacy.
--- NOTE | 2019-09-26 18:41 | Internal Med Progress Note ---
Subjective Date of Service: Sep 26, 2019 Physician Name Jose Hernandez Attending Physician Antolin Baer MD Current Medications Medications (Trade) Dose Ordered Sig/Manny Route PRN Reason Start Time Stop Time Status Last Admin Dose Admin Acetaminophen (Tylenol) 650 mg Q4H PRN ORAL fever 09/22/19 23:45 10/22/19 23:44 Amlodipine Besylate (Norvasc) 5 mg DAILY ORAL 09/25/19 09:00 10/25/19 08:59 09/26/19 09:09 Amlodipine Besylate (Norvasc) 5 mg DAILY ORAL 09/26/19 00:00 09/28/19 23:59 No refill Clonidine HCl (Catapres Tab) 0.1 mg Q4H PRN ORAL sbp more than 160 09/22/19 23:45 10/22/19 23:44 09/23/19 23:28 Dextrose (Dextrose 50%) 25 ml Q30M PRN IV Hypoglycemia 09/23/19 13:30 10/23/19 13:29 Dextrose (Dextrose 50%) 50 ml Q30M PRN IV Hypoglycemia 09/23/19 13:30 10/23/19 13:29 Hydralazine HCl (Apresoline) 25 mg Q6H ORAL 09/26/19 00:00 09/28/19 23:59 No refill Hydralazine HCl (Apresoline) 25 mg Q6HR ORAL 09/24/19 12:00 10/24/19 11:59 09/26/19 17:32 Insulin Aspart (NovoLOG) BEFORE MEALS AND HS SUBQ 09/23/19 06:30 10/23/19 06:29 09/26/19 17:47 Insulin Aspart (NovoLOG) 8 units NOVOTIAC SUBQ 09/23/19 16:50 10/23/19 16:49 09/26/19 17:48 Insulin Aspart (NovoLOG) 8 units NOVOTIAC SUBQ 09/26/19 00:00 09/26/19 23:59 No refill Insulin Detemir (Levemir) 15 units BIAC SUBQ 09/26/19 00:00 09/26/19 23:59 No refill Insulin Detemir (Levemir) 15 units Q12HR SUBQ 09/23/19 21:00 10/23/19 20:59 09/26/19 09:09 Polyethylene Glycol (Miralax) 17 gm HSPRN PRN ORAL Constipation 09/22/19 23:45 10/22/19 23:44 09/26/19 17:32 Quetiapine Fumarate (SEROquel) 200 mg DAILY ORAL 09/26/19 00:00 09/28/19 23:59 No refill Sodium Chloride 1,000 ml @ 150 mls/hr Q6H40M IV 09/25/19 12:15 10/25/19 12:14 09/26/19 10:45 Temazepam (Restoril) 15 mg HSPRN PRN ORAL Insomnia 09/22/19 23:45 09/29/19 23:44 Allergies: Coded Allergies: PENICILLINS (Verified Allergy, Mild, Rash, 09/08/18) Uncoded Allergies: PENICILLIN (Allergy, Unknown, 09/22/19) ROS Limited/Unobtainable: No Constitutional: Reports: weakness HEENT: Reports: no symptoms Cardiovascular: Reports: no symptoms Respiratory: Reports: no symptoms Gastrointestinal/Abdominal: Reports: no symptoms Genitourinary: Reports: no symptoms Neurologic/Psychiatric: Reports: no symptoms Subjective 69 YO F admitted with gen weakness. Now hyperglycemia and hypertensive emergency. Cover for Int Saul-Dr Baer Objective Last Vital Signs Date Time Temp Pulse Resp B/P (MAP) Pulse Ox O2 Delivery O2 Flow Rate FiO2 09/26/19 17:32 129/82 09/26/19 16:00 98.0 92 18 97 09/26/19 09:00 Room Air 09/24/19 19:33 21 Laboratory Tests Test 09/25/19 22:35 09/26/19 06:31 Urine Color Pale yellow Urine Appearance Clear Urine pH 6 (4.5-8.0) Urine Specific [place] 1.005 (1.005-1.035) Urine Protein 2+ (NEGATIVE) H Urine Glucose (UA) 3+ (NEGATIVE) H Urine Ketones Negative (NEGATIVE) Urine Blood Negative (NEGATIVE) Urine Nitrite Negative (NEGATIVE) Urine Bilirubin Negative (NEGATIVE) Urine Urobilinogen Normal MG/DL (0.0-1.0) Urine Leukocyte Esterase Negative (NEGATIVE) Urine RBC 0 /HPF (0 - 2) Urine WBC 0 /HPF (0 - 2) Urine Squamous Epithelial Cells None /LPF (NONE/OCC) Urine Bacteria None /HPF (NONE) Urine Eosinophils None seen (NONE SEEN) Urine Osmolality 370 mOsm/kg (429-449) L Urine Random Creatinine Pending Urine Random Microalbumin Pending Urine Random Sodium 106 mmol/L (20-110) Urine Microalbumin/Creatinine Ratio Pending White Blood Count 6.1 K/UL (4.8-10.8) Red Blood Count 4.82 M/UL (4.20-5.40) Hemoglobin 12.6 G/DL (12.0-16.0) Hematocrit 37.6 % (37.0-47.0) Mean Corpuscular Volume 78 FL (80-99) L Mean Corpuscular Hemoglobin 26.2 PG (27.0-31.0) L Mean Corpuscular Hemoglobin Concent 33.5 G/DL (32.0-36.0) Red Cell Distribution Width 11.4 % (11.6-14.8) L Platelet Count 263 K/UL (150-450) Mean Platelet Volume 7.9 FL (6.5-10.1) Neutrophils (%) (Auto) 50.4 % (45.0-75.0) Lymphocytes (%) (Auto) 39.3 % (20.0-45.0) Monocytes (%) (Auto) 6.2 % (1.0-10.0) Eosinophils (%) (Auto) 3.1 % (0.0-3.0) H Basophils (%) (Auto) 0.9 % (0.0-2.0) Erythrocyte Sedimentation Rate 28 MM/HR (0-30) Sodium Level 139 MMOL/L (136-145) Potassium Level 4.1 MMOL/L (3.5-5.1) Chloride Level 107 MMOL/L (98-107) Carbon Dioxide Level 27 MMOL/L (21-32) Anion Gap 5 mmol/L (5-15) Blood Urea Nitrogen 22 mg/dL (7-18) H Creatinine 1.1 MG/DL (0.55-1.30) Estimat Glomerular Filtration Rate 59.5 mL/min (>60) Glucose Level 123 MG/DL (74-106) H Calcium Level 8.5 MG/DL (8.5-10.1) Phosphorus Level 3.4 MG/DL (2.5-4.9) Magnesium Level 1.4 MG/DL (1.8-2.4) L Total Bilirubin 0.3 MG/DL (0.2-1.0) Aspartate Amino Transf (AST/SGOT) 115 U/L (15-37) H Alanine Aminotransferase (ALT/SGPT) 114 U/L (12-78) H Alkaline Phosphatase 92 U/L (46-116) C-Reactive Protein, Quantitative < 0.4 mg/dL (0.00-0.90) Total Protein 6.9 G/DL (6.4-8.2) Albumin 2.8 G/DL (3.4-5.0) L Globulin 4.1 g/dL Albumin/Globulin Ratio 0.7 (1.0-2.7) L Intake and Output 09/25/19 09/26/19 19:00 07:00 Intake Total 748 ml 1560 ml Balance 748 ml 1560 ml Intake Oral 598 ml 360 ml IV Total 150 ml 1200 ml # Voids 2 4 Objective PHYSICAL EXAMINATION: GENERAL: The patient is a well-developed and well-nourished female, no apparent distress. HEENT: Eyes, pupils equal and responsive to light and accommodation. Extraocular movements are intact. NECK: Supple without lymphadenopathy. CHEST: Lungs are clear to auscultation bilaterally without wheezes or rales. CARDIOVASCULAR: Regular rate. S1 and S2 are normal without murmurs, rubs, or gallops. ABDOMEN: Soft, nontender, and nondistended. Positive bowel sounds. No evidence of hepatosplenomegaly. Currently, no rebound or guarding noted. EXTREMITIES: Negative for clubbing, cyanosis, or edema. RECTAL: Not performed. GENITALIA: Not performed. NEUROLOGIC: Cranial nerves II through XII are grossly intact without focal deficits. Motor strength is 5/5 bilaterally intact. Deep tendon reflexes are 2+ plantar. Assessment/Plan Assessment/Plan ASSESSMENT: This is a 69-year-old female: 1. Generalized weakness. 2. Shortness of breath. 3. Hyperglycemia. 4. Uncontrolled diabetes type 2. 5. Hypertensive emergency. 6. Hyponatremia. 7. Homeless TREATMENT: 1. Generalized weakness/shortness of breath/hyperglycemia/uncontrolled diabetes type 2. he patient has been placed on Levemir 15 units subcutaneously twice daily. A NovoLog sliding scale has been instituted. Accu-Cheks will be performed before meals and nightly. 2. Hypertensive emergency. The patient is currently receiving clonidine 0.1 mg q.4 h. p.r.n. 3. Hyponatremia. The patient is currently receiving intravenous fluids with sodium chloride. 4. Discharge planning: Prison vs similar - see case management note. Jose Hernandez MD Sep 26, 2019 18:41
--- NOTE | 2019-09-26 19:22 | NUR ---
HAND-OFF: Report given to LISY Multani. Plan of care endorsed. Aware of DC planning for tomorrow am. To f/u with MD regarding Pt.'s lab result.
[2019-09-26 20:00] VITALS: BP 168/98
--- NOTE | 2019-09-26 20:00 | NUR ---
NURSE NOTES: Received report from LISY Suggs. Patient is resting comfortably in bed. No c/o of pain or SOB on room air. Right forearm 20G IV is intact and asymptomatic. Day shift RN endorsed that patient will be discharged by next morning RN 09/27 to [facility] long-term once breakfast is given and medication is picked up in pharmacy. Patient is alert and oriented x4.
[2019-09-27] VITALS: BP 138/83
[2019-09-27] MEDS: HydrALAZINE 25mg tab ORAL SCH ×2 (00:37→05:53)
[2019-09-27 04:00] VITALS: BP 141/80
--- NOTE | 2019-09-27 05:00 | NUR ---
NURSE NOTES: Patient refused all morning labs and stated "im going today and don't need them".
[2019-09-27] MEDS: NovoLOG Insulin Flexpen SUBQ SCH ×2 (05:56)
--- NOTE | 2019-09-27 06:41 | General Progress Note ---
Assessment/Plan Problem List: (1) JOLENE (acute kidney injury) ICD Codes: N17.9 - Acute kidney failure, unspecified SNOMED: 80707614, 8028075 (2) Diabetes ICD Codes: E11.9 - Type 2 diabetes mellitus without complications SNOMED: 24782217 (3) HTN (hypertension) ICD Codes: I10 - Essential (primary) hypertension SNOMED: 37116960 (4) Cocaine use ICD Codes: F14.90 - Cocaine use, unspecified, uncomplicated SNOMED: 628261907 (5) Hyperglycemia ICD Codes: R73.9 - Hyperglycemia, unspecified SNOMED: 47403109 Assessment/Plan: increase Levemir to 18 units bid increase Novolog to 10 units ac tid continue NISS ac / hs Subjective Allergies: Coded Allergies: PENICILLINS (Verified Allergy, Mild, Rash, 09/08/18) Uncoded Allergies: PENICILLIN (Allergy, Unknown, 09/22/19) All Systems: reviewed and negative except above Subjective events noted fasting glucose elevated Item Value Date Time Bedside Blood Glucose 266 mg/dl H 09/27/19 0630 Bedside Blood Glucose 347 mg/dl H 09/26/19 2117 Bedside Blood Glucose 239 mg/dl H 09/26/19 1748 Bedside Blood Glucose 219 mg/dl H 09/26/19 1230 Bedside Blood Glucose 106 mg/dl 09/26/19 0909 Bedside Blood Glucose 106 mg/dl 09/26/19 0648 Objective Last 24 Hour Vital Signs Date Time Temp Pulse Resp B/P (MAP) Pulse Ox O2 Delivery O2 Flow Rate FiO2 09/27/19 05:53 141/80 09/27/19 04:00 97.8 80 16 141/80 (100) 98 09/27/19 00:37 138/83 09/27/19 00:00 98.0 82 15 138/83 (101) 98 09/26/19 21:17 168/98 09/26/19 21:00 Room Air 09/26/19 20:00 97.6 88 18 168/98 (121) 97 09/26/19 17:32 129/82 09/26/19 16:00 98.0 92 18 129/82 (98) 97 09/26/19 12:31 146/86 09/26/19 12:00 97.7 86 18 146/86 (106) 97 09/26/19 09:09 84 131/77 10/30/19 09:00 Room Air 09/26/19 08:00 97.1 84 19 131/77 (95) 99 09/26/19 06:45 147/94 Intake and Output 09/26/19 09/27/19 19:00 07:00 Intake Total 1200 ml 2550 ml Balance 1200 ml 2550 ml Intake Oral 1200 ml 1200 ml IV Total 1350 ml # Voids 3 3 # Bowel Movements 1 Height (Feet): 5 Height (Inches): 9.00 Weight (Pounds): 145 General Appearance: no apparent distress Neck: normal alignment Cardiovascular: normal rate Respiratory/Chest: lungs clear Abdomen: normal bowel sounds Objective Current Medications Medications (Trade) Dose Ordered Sig/Manny Route PRN Reason Start Time Stop Time Status Last Admin Dose Admin Acetaminophen (Tylenol) 650 mg Q4H PRN ORAL fever 09/22/19 23:45 10/22/19 23:44 Amlodipine Besylate (Norvasc) 5 mg DAILY ORAL 09/25/19 09:00 10/25/19 08:59 09/26/19 09:09 Amlodipine Besylate (Norvasc) 5 mg DAILY ORAL 09/26/19 00:00 09/28/19 23:59 No refill Clonidine HCl (Catapres Tab) 0.1 mg Q4H PRN ORAL sbp more than 160 09/22/19 23:45 10/22/19 23:44 09/26/19 21:17 Dextrose (Dextrose 50%) 25 ml Q30M PRN IV Hypoglycemia 09/23/19 13:30 10/23/19 13:29 Dextrose (Dextrose 50%) 50 ml Q30M PRN IV Hypoglycemia 09/23/19 13:30 10/23/19 13:29 Hydralazine HCl (Apresoline) 25 mg Q6H ORAL 09/26/19 00:00 09/28/19 23:59 No refill Hydralazine HCl (Apresoline) 25 mg Q6HR ORAL 09/24/19 12:00 10/24/19 11:59 09/27/19 05:53 Insulin Aspart (NovoLOG) BEFORE MEALS AND HS SUBQ 09/23/19 06:30 10/23/19 06:29 09/27/19 05:56 Insulin Aspart (NovoLOG) 8 units NOVOTIAC SUBQ 09/23/19 16:50 10/23/19 16:49 09/27/19 05:56 Insulin Detemir (Levemir) 15 units Q12HR SUBQ 09/23/19 21:00 10/23/19 20:59 09/26/19 21:16 Polyethylene Glycol (Miralax) 17 gm HSPRN PRN ORAL Constipation 09/22/19 23:45 10/22/19 23:44 09/26/19 17:32 Quetiapine Fumarate (SEROquel) 200 mg DAILY ORAL 09/26/19 00:00 09/28/19 23:59 No refill Sodium Chloride 1,000 ml @ 150 mls/hr Q6H40M IV 09/25/19 12:15 10/25/19 12:14 09/27/19 03:39 Temazepam (Restoril) 15 mg HSPRN PRN ORAL Insomnia 09/22/19 23:45 09/29/19 23:44 Haresh Matos MD Sep 27, 2019 06:41
--- NOTE | 2019-09-27 07:37 | NUR ---
HAND-OFF: Report given to LISY Canales. Patient in stable condition.
[2019-09-27 08:00] VITALS: BP 124/81
[2019-09-27] MEDS ORDERED: Levemir Flexpen SUBQ SCH (09:00)
--- NOTE | 2019-09-27 10:37 | NUR ---
PT NOTE Patient demonstrating independent transfers and ambulation without assistive device. Skilled inpatient PT intervention no longer warranted. Patient discharged from PT, Ally WASSERMAN notified. Addendum: 09/27/19 at 1038 by VIOLETA BRENNAN PT Amended: Links added.
--- NOTE | 2019-09-27 11:13 | NUR ---
NURSE NOTES: Patient is discharged. No IV and ID band removed. Belongings reconciled. Discharge medication and education given. Escorted from facility without incident or injury.
[2019-09-27] MEDS ORDERED: NovoLOG Insulin Flexpen SUBQ SCH (11:50)
--- NOTE | 2019-09-28 08:06 | Discharge Summary ---
Discharge Summary Discharge Summary _ DATE OF ADMISSION: 09/22/2019 DATE OF DISCHARGE: 09/17/2019 DISCHARGED BY: Dr. Baer REASON FOR ADMISSION: 69 years old female with past medical history of diabetes mellitus, insulin- dependent, hypertension (not on any antihypertensive at home,) bipolar disorder , substance abuse, presented for evaluation to ED due to generalized weakness. Patient reported depressive episode few days ago and thern stopped taking her insulin. Patient subsequently felt weak, with shortness of breath and palpitations. Patient had episode of urinary incontinence. Patient reported polyuria for the last few days. She denied chest pain. No cough. She denied vomiting , but reported nausea. No fever or chills. No abdominal pain or diarrhea. Upon evaluation blood pressure was significantly elevated 188/101. Laboratory work-up revealed no leukocytosis, stable hemoglobin and hematocrit. Sodium 128, anion gap 7. BUN 20, creatinine 1.7. Glucose 775. AST 48, ALT 79. Troponin - 0.002. Albumin 3.3. Salicylate , Tylenol and alcohol levels were all negative. Urine toxicology screen was positive for cocaine. Patient admitted to recent cocaine use. Urinalysis revealed no evidence of urinary tract infection. EKG revealed sinus rhythm, no acute ischemic changes. Patient subsequently was admitted for further management. CONSULTANTS: hospitalist Dr. Cheng powder operator Dr. Matos [facility]: Patient admitted to medical surgical floor. Patient started on IV hydration with normal saline. Electrolytes and renal parameters were closely monitored. Hyponatremia resolved , likely was due to hyperglycemia. Renal parameters were closely monitored, electrolytes further corrected as needed , and nephrotoxins were avoided. Acute kidney injury resolved. Renal ultrasound revealed suspected medical renal disease. Urinalysis revealed +2 protein. Information Security Risk Analyst followed. Blood sugar was managed with long-acting Levemir twice a day, short acting insulin pre-meals and sliding scale of insulin as needed. Hemoglobin A1c 10.1, clearly not at goal. Diabetic diet provided. Diabetic teaching instituted. Further doses of insulin were uptitrated as per powder operator, based on blood sugar results. Blood sugar eventually stabilized. Patient was encouraged compliance with anti-glycemic regimen as outpatient. TSH was within normal limits. Blood pressure was managed with Norvasc and clonidine was on board as needed. Patient was counseled on abstinence from illicit street drugs. DVT prophylaxis provided. Supportive care provided. Sodium 139 prior to discharge. Creatinine 1.1. Magnesium was replaced. Blood sugar and blood pressure stabilized. therapeutic activities services worker met with the patient and provided information regarding [facility]. Patient made aware of her options. Patient was assessed by attending physician and was found to be medically stable for discharge to an outpatient disposition. FINAL DIAGNOSES: Acute kidney injury -resolved Diabetes mellitus [id number] Hyperglycemia Hypertension with initial hypertensive urgency -stabilized Hyponatremia -resolved Cocaine use Noncompliance Homelessness DISCHARGE MEDICATIONS: See Medication Reconciliation list. DISCHARGE INSTRUCTIONS: Patient was discharged . Patient made aware of alf options. Macarena Riddle NP Sep 28, 2019 08:06
== END 2019-09-27 11:10 | disposition home or self-care (01) | DRG 638 ==
LOC: EDBD 20:51 → EMR 22:05 → 3E 22:14 → EDBEDREQ 23:40
DX: E11.65 Type 2 diabetes mellitus with hyperglycemia (principal); I16.1 Hypertensive emergency; E87.1 Hypo-osmolality and hyponatremia; N17.9 Acute kidney failure, unspecified; F14.10 Cocaine abuse, uncomplicated; Z59.0 Homelessness; Z91.14 Patient's other noncompliance with medication regimen; F31.9 Bipolar disorder, unspecified
CPT/HCPCS: 36415; 76770; 80048; 80053; 80061; 80307; 81001; 81003; 82009; 82043; 82550; 82962; 83036; 83735; 83935; 84100; 84300; 84443; 84484; 84550; 85025; 85651; 86140; 87081; 89050; 93005; 94664; 96361; 96374; 99285; G0480; J1815; J7030; S5561